=== PATIENT | female | born 1955 | race Caucasian/White ===

== ENCOUNTER → 2018-02-09 12:17 | Outpatient (CLI) | payer MEDICARE, OTHER, SELFPAY ==
--- NOTE | 2018-02-09 12:32 | US_ITS ---
STUDY: ABDOMINAL ULTRASOUND - RIGHT UPPER QUADRANT REASON FOR VISIT: Female, 63 years old. RUQ pain. TECHNIQUE: Ultrasound evaluation of the right upper quadrant was performed with real-time and static sue-scale imaging. TECHNICAL QUALITY: Adequate. COMPARISON: None. FINDINGS: Liver: The liver measures 19.4 cm. There is normal echogenicity of the liver. The bile ducts are within normal limits. There is hepatic color flow. The direction of portal flow is hepatopetal. There is no demonstrated mass lesion. Gallbladder: Normal distended gallbladder. The gallbladder wall measures 2.8 mm. There is a negative sonographic Delaney's sign. There is no pericholecystic fluid. There are multiple echogenic structures within the gallbladder, consistent with multiple gallstones. Common Bile Duct (C.B.D.): The common bile duct measures 5.6 mm. Pancreas: Normal size of the head, body of the pancreas. There is normal echogenicity of the pancreas. There is no demonstrated pancreatic mass or cyst. Right Kidney: Normal size of the right kidney. The right kidney measures 10.1 cm. Normal renal cortex. The right cortex measures cm. There is no demonstrated renal mass or cyst. There is no right hydronephrosis. US/Abdomen Limited IMPRESSION: Cholelithiasis. Electronically Signed: Marcellus Nunn MD at 13:17 EDT Tel , Service support ,
[2018-02-09 13:24] LABS: Absolute Lymphocyte Count 1.21 X10^3/ul (0.83-4.51); Absolute Neutrophil Count 8.1 X10^3/uL (2.0-7.7); Basophil# 0.01 X10^3/uL; Basophil% 0.1 % (0-1); Eosinophil# 0.07 X10^3/uL; Eosinophils% 0.7 % (0-5); Hematocrit 35.3 % (37-47); Hemoglobin 11.9 g/dl (12.0-15.0); Lymphocyte # 1.21 X10^3/ul (4.0); Lymphocyte % 11.8 % (19-41); Mean Corp Hgb Conc 33.7 g/gl (32-36); Mean Corpuscular Hgb 31.3 pg (27.0-32.0); Mean Corpuscular Volume 92.9 fL (81-99); Mean Platelet Vol. 9.9 fl (6.2-12.0); Monocyte# 0.87 X10^3/uL; Monocyte% 8.5 % (0-10); Neutrophil # 8.05 X10^3/uL (2.7-7.7); Neutrophil % 78.7 % (47-70); POSITIVE COUNT NO; POSITIVE DIFFERENTIAL NO; POSITIVE MORPHOLOGY NO; Platelet Count 185 K/mm3 (150-450); RBC Distribution Width CV 14.5 % (11.6-14.6); RBC Distribution Width SD 49.7 fl (35.1-43.9); White Blood Count 10.2 K/mm3 (4.4-11.0)
[2018-02-09 13:55] LABS: ALB/GLOB Ratio 0.7 RATIO (0.9-2.4); AST(SGOT) 38 U/L (15-37); Alanine Aminotransfer ALT/SGPT 192 U/L (13-56); Albumin, Serum 2.8 g/dL (3.2-5.0); Alkaline Phosphatase 85 U/L (45-117); Anion Gap 6 (5-15); BUN 21 mg/dL (7-18); Calcium,Total 8.1 mg/dL (8.5-10.1); Chloride 93 mmol/L (98-107); Creatinine, Serum 0.95 mg/dL (0.55-1.02); EST Glomerular Filtration Rate 62 mL/min (>60); Est Glom Filt Rate - Afr Amer 76 mL/min (>60); Globulin 4.1 g/dL (2.2-4.2); Glucose 104 mg/dL (74-106); Lipase 589 U/L (73-393); Potassium 2.7 mmol/L (3.5-5.1); Protein, Total 6.9 g/dL (6.4-8.2); Sodium Level 132 mmol/L (136-145)
[2018-02-09 21:04] LABS: Xtra Tube EP Lab EXTRA TUBE
[2018-02-10 11:40] LABS: Hep C Antibodies <0.1 s/co ratio (0.0-0.9); Hepatitis A AB, Total Negative (Negative)
== END ==
PROVIDERS: Family Provider Family Medicine; PCP Family Medicine; Visit Provider Family Medicine
DX: K80.20 Calculus of gallbladder without cholecystitis without obstruction (principal)
CPT/HCPCS: 36415; 76705; 80053; 83690; 85025; 86140; 86708; 86803

== ENCOUNTER 2018-02-09 14:22 | Inpatient (IN) | payer MEDICARE, OTHER, SELFPAY ==
[2018-02-09 14:23] VITALS: BP 109/56; PULSE 95; RESP 14; TEMP 36.2; O2SAT 98; BMI 30.5
--- NOTE | 2018-02-09 14:49 | ED.DCSUM_ITS ---
- ER Visit Summary Date of Service: 02/09/18 Chief Complaint: [] Abdominal pain, weight loss. History of Present Illness: The patient is a 63 F [] complaining of 12 pound weight loss in the last 4 days secondary to pain, and nausea and vomiting. Patient was seen today as an outpatient and underwent right upper quadrant ultrasound and outpatient laboratory testing. Labs reveal an elevated lipase at 589 consistent with pancreatitis. CBC normal, BMP normal with exception of a sodium of 132 potassium 2.7, respectively. CRP significantly elevated at 297. Right upper quadrant ultrasound reveals cholelithiasis with a gallbladder wall thickness of 2.8 mm. Physical Examination: [] Afebrile, vital signs stable. 63-year-old female no acute distress. Cardiovascular exam is regular rate and rhythm. Lungs clear to auscultation. Abdomen is soft with right upper quadrant tenderness on exam. No guarding or rebound noted. 1+ symmetric lower extremity edema. Remainder of exam is unremarkable. Test Results: [] All test results from earlier today are reviewed. Emergency Department Course and Treatment: [] Patient given intravenous fluids and morphine and Phenergan for symptom relief. Case discussed with hospitalist for admission and further treatment and evaluation. Treatment Plan: [] NPO. IV fluids. Case discussed with the patient's requested surgeon, Dr. Harrell. He will be in to the emergency department to evaluate the patient at the completion of his outpatient complement of patients. Disposition: [] Admit, stable. Impression: [] Gallstone pancreatitis Hypokalemia Hyponatremia Functional decline This note was generated with [employer] dictation software. It may contain incorrect words, spelling, and punctuation that were not noted in review of the chart prior to signing ED Disposition - Plan for ED Patient: Chief Complaint: Abd Pain Referrals: Marvel Shaikh MD [Primary Care Provider] -
--- NOTE | 2018-02-09 14:49 | EKG12_ITS ---
Test Reason : ABDOMINAL PAIN Blood Pressure : / mmHG Vent. Rate : 086 BPM Atrial Rate : 086 BPM P-R Int : 142 ms QRS Dur : 086 ms QT Int : 360 ms P-R-T Axes : 050 013 018 degrees QTc Int : 430 ms Normal sinus rhythm Nonspecific ST abnormality Abnormal ECG Confirmed by JOSE LUIS COLON, ISSAC ([id number]), legal editor ZACK VLAVERDE ([id number] on 02/15/2018 1:39:51 PM Referred By: Marvel Shaikh Confirmed By:ISSAC AMAYA MD
[2018-02-09] MEDS: Morphine 2 MG/ML Syringe IV (15:11)
[2018-02-09] MEDS: proMETHazine 25 MG/ML Syringe 6.25 MG IV (15:12)
[2018-02-09 15:48] VITALS: BMI 30.6
--- NOTE | 2018-02-09 16:20 | PCM.HP.STD ---
Problem List (1) Cholelithiasis Status: Acute (2) RUQ abdominal pain Status: Acute History of Present Illness Date of Admission: 02/09/18 Chief Complaint: Right upper quadrant pain. Nausea, vomiting. The patient is a 63 year old F who presents with 4 day history of nausea, vomiting and RUQ abdominal pain. Patient notes on Tuesday she started to vomit. She did not have much of an appetite. She attempted to eat some toast. She continued with nausea, vomiting symptoms. Patient stated she thought she had the flu. She noted also being weak and tired. Patient's daughter made an appointment with her PCP, Dr. Shaikh for today. She was evaluated in the office and was referred to the [facility] for lab work and RUQ u/s. Lab work demonstrated WBC 10.2, Hgb 11.9, Hct 35.3, and plt 185. Potassium was 2.7, BUN 21, Total bilirubin 1.20, AST 38, ALT 192, CRP 297, and lipase of 589. RUQ u/s demonstrated multiple gallstones, no pericholecystic fluid, negative sonographic Delaney's sign. Normal pancreas. Patient was instructed by Dr. Shaikh to present to the ED for admission. Patient denies having similar symptoms previously. She was unaware she had gallstones. She denies bowel habit changes. She denies previous myocardial infarction, stroke, blood clots. She denies having to be evaluated by a product consultant previously. She denies being on blood thinners. Patient notes previous abdominal surgeries as tubal ligation and 1 . She denies history of smoking. She occasionally drinks a glass a wine. Past Medical History Allergies Penicillins [PCN] Allergy (Verified 02/09/18 14:26) Hives acetaminophen [From Tylenol] Adverse Reaction (Verified 02/09/18 14:26) Rash aspirin [ASA] Adverse Reaction (Verified 02/09/18 14:26) Rash egg Adverse Reaction (Verified 02/09/18 15:54) Food Allergy Pt states she cannot have straight eggs, but mixed with things it is not a problem. Sulfa (Sulfonamide Antibiotics) Adverse Reaction (Verified 02/09/18 14:26) Vomiting Home Medications: Ambulatory Orders Medication Instructions Recorded Amlodipine [Norvasc] 5 mg PO DAILY 02/09/18 Benazepril HCl [Lotensin] 20 mg PO QHS 02/09/18 Cholecalciferol (Vitamin D3) 5,000 unit PO QHS 02/09/18 [Vitamin D3] Diphenhydramine HCl [Benadryl 25 mg PO BID PRN 02/09/18 Allergy] Indapamide [Indapamide] 1.25 mg PO DAILY 02/09/18 Naproxen [Naproxen] 500 mg PO BID PRN 02/09/18 Simvastatin [Zocor] 20 mg PO QHS 02/09/18 Surgical History: - - Tubal ligation and 1 Psychiatric History: No pertinent psych hx 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 Denies: Chills, Fever HEENT: Denies: Head Aches, Sinus Congestion, Sinus Drainage Cardiovascular: Denies: Chest Pain, Palpitations Respiratory: Denies: Cough, Shortness of breath at rest, Sputum production Gastrointestinal: Reports: Abdominal Pain, Nausea, Vomiting Genitourinary: Denies: Dysuria Musculoskeletal: Reports: Back Pain. Denies: Joint Pain, Joint Tenderness Skin: Denies: Rash, Wounds Neurological: Denies: Numbness, Tingling, Focal weakness Psychiatric: Denies: Anxiety, Depression, Homicidal Ideations, Suicidal Ideations Hematologic/ Lymphatic: Denies: Easy Bruising, Easy Bleeding, Hx of blood clot VTE Information - Inpt Only VTE Present on Admission: Yes VTE Mechan Device Prophylaxis: SCD's Patient Problems: Active and Suspected Problems Abdominal pain (Acute) Cholelithiasis (Acute) RUQ abdominal pain (Acute) - Physical Exam General: Alert, Oriented x3, Cooperative HEENT: Atraumatic, PERRLA, EOMI, Normocephalic Neck: Supple, No JVD, Negative Carotid Bruits Lungs: Clear to auscultation, Normal air movement Cardiovascular: Regular rate, No murmurs Abdomen: Soft, Hypoactive Bowel Sounds, Distended, Tender - RUQ. Positive Delaney's sign Extremities: No edema, Capillary Refill Less than 3 Seconds Skin: No rashes, No breakdown Musculoskeletal: No Tenderness to Palpation of Joints or Extremities Neurological: Neuro grossly intact Psych/Mental Status: Normal Affect, Appropriate Vital Signs Temp Pulse Resp BP Pulse Ox 97.2 F L 95 14 109/56 L 98 02/09/18 14:23 02/09/18 14:23 02/09/18 14:23 02/09/18 14:23 02/09/18 14:23 Oxygen Delivery Method Room Air Weight: 178 lb 2.136 oz Body Mass Index (BMI) 30.5 Assessment/Plan Active and Suspected Problems Abdominal pain (Acute) Cholelithiasis (Acute) RUQ abdominal pain (Acute) I have been asked to evaluate this patient in conjunction with Dr. Arredondo. Impression: Nausea, vomiting, RUQ abdominal pain. Cholelithiasis. Hypokalemia Plan: I have discussed this patient in conjunction with Dr. Arredondo. Dr. Arredondo will plan to perform a laparoscopic cholecystectomy with intraoperative cholangiogram tomorrow. Dr. Arredondo will review the procedure with the patient. We will admit the patient to the med/surg floor. We will replace patient's potassium and recheck lab work in the morning. Patient and her daughter have had the opportunity to ask questions up to this point. Dr. Arredondo will review additional questions with the patient. Thank you for allowing us the opportunity to participate in this patient's care. My recommendations will be available via electronic medical records.
[2018-02-09 16:21] VITALS: BP 130/78; PULSE 80; RESP 14; O2SAT 98
[2018-02-09 16:28] VITALS: BP 124/70; PULSE 85; RESP 14; O2SAT 99
--- NOTE | 2018-02-09 16:32 | HP.PCM_ITS ---
Problem List (1) Cholelithiasis Status: Acute (2) RUQ abdominal pain Status: Acute History of Present Illness Date of Admission: 02/09/18 Chief Complaint: Right upper quadrant pain. Nausea, vomiting. The patient is a 63 year old F who presents with 4 day history of nausea, vomiting and RUQ abdominal pain. Patient notes on Tuesday she started to vomit. She did not have much of an appetite. She attempted to eat some toast. She continued with nausea, vomiting symptoms. Patient stated she thought she had the flu. She noted also being weak and tired. Patient's daughter made an appointment with her PCP, Dr. Shaikh for today. She was evaluated in the office and was referred to the [facility] for lab work and RUQ u/s. Lab work demonstrated WBC 10.2, Hgb 11.9, Hct 35.3, and plt 185. Potassium was 2.7, BUN 21, Total bilirubin 1.20, AST 38, ALT 192, CRP 297, and lipase of 589. RUQ u/s demonstrated multiple gallstones, no pericholecystic fluid, negative sonographic Delaney's sign. Normal pancreas. Patient was instructed by Dr. Shaikh to present to the ED for admission. Patient denies having similar symptoms previously. She was unaware she had gallstones. She denies bowel habit changes. She denies previous myocardial infarction, stroke, blood clots. She denies having to be evaluated by a cv tech previously. She denies being on blood thinners. Patient notes previous abdominal surgeries as tubal ligation and 1 c- section. She denies history of smoking. She occasionally drinks a glass a wine. Past Medical History Allergies Penicillins [PCN] Allergy (Verified 02/09/18 14:26) Hives acetaminophen [From Tylenol] Adverse Reaction (Verified 02/09/18 14:26) Rash aspirin [ASA] Adverse Reaction (Verified 02/09/18 14:26) Rash egg Adverse Reaction (Verified 02/09/18 15:54) Food Allergy Pt states she cannot have straight eggs, but mixed with things it is not a problem. Sulfa (Sulfonamide Antibiotics) Adverse Reaction (Verified 02/09/18 14:26) Vomiting Home Medications: Ambulatory Orders Medication Instructions Recorded Amlodipine [Norvasc] 5 mg PO DAILY 02/09/18 Benazepril HCl [Lotensin] 20 mg PO QHS 02/09/18 Cholecalciferol (Vitamin D3) 5,000 unit PO QHS 02/09/18 [Vitamin D3] Diphenhydramine HCl [Benadryl 25 mg PO BID PRN 02/09/18 Allergy] Indapamide [Indapamide] 1.25 mg PO DAILY 02/09/18 Naproxen [Naproxen] 500 mg PO BID PRN 02/09/18 Simvastatin [Zocor] 20 mg PO QHS 02/09/18 Surgical History: - - Tubal ligation and 1 Psychiatric History: No pertinent psych hx COUNTRY DIRECTOR History: No pertinent COUNTRY DIRECTOR history Lives: Alone Smoking Status: Never smoker Alcohol: None Drugs: None - *Family History Maternal History Items: No pertinent history Paternal History Items: No pertinent history Review of Systems Constitutional: Reports: Anorexia, Malaise, Weakness, Fatigue. Denies: Chills, Fever HEENT: Denies: Head Aches, Sinus Congestion, Sinus Drainage Cardiovascular: Denies: Chest Pain, Palpitations Respiratory: Denies: Cough, Shortness of breath at rest, Sputum production Gastrointestinal: Reports: Abdominal Pain, Nausea, Vomiting Genitourinary: Denies: Dysuria Musculoskeletal: Reports: Back Pain. Denies: Joint Pain, Joint Tenderness Skin: Denies: Rash, Wounds Neurological: Denies: Numbness, Tingling, Focal weakness Psychiatric: Denies: Anxiety, Depression, Homicidal Ideations, Suicidal Ideations Hematologic/ Lymphatic: Denies: Easy Bruising, Easy Bleeding, Hx of blood clot VTE Information - Inpt Only VTE Present on Admission: Yes VTE Mechan Device Prophylaxis: SCD's Patient Problems: Active and Suspected Problems Abdominal pain (Acute) Cholelithiasis (Acute) RUQ abdominal pain (Acute) - Physical Exam General: Alert, Oriented x3, Cooperative HEENT: Atraumatic, PERRLA, EOMI, Normocephalic Neck: Supple, No JVD, Negative Carotid Bruits Lungs: Clear to auscultation, Normal air movement Cardiovascular: Regular rate, No murmurs Abdomen: Soft, Hypoactive Bowel Sounds, Distended, Tender - RUQ. Positive Delaney 's sign Extremities: No edema, Capillary Refill Less than 3 Seconds Skin: No rashes, No breakdown Musculoskeletal: No Tenderness to Palpation of Joints or Extremities Neurological: Neuro grossly intact Psych/Mental Status: Normal Affect, Appropriate Vital Signs Temp Pulse Resp BP Pulse Ox 97.2 F L 95 14 109/56 L 98 02/09/18 14:23 02/09/18 14:23 02/09/18 14:23 02/09/18 14:23 02/09/18 14:23 Oxygen Delivery Method Room Air Weight: 178 lb 2.136 oz Body Mass Index (BMI) 30.5 Assessment/Plan Active and Suspected Problems Abdominal pain (Acute) Cholelithiasis (Acute) RUQ abdominal pain (Acute) I have been asked to evaluate this patient in conjunction with Dr. Arredondo. Impression: Nausea, vomiting, RUQ abdominal pain. Cholelithiasis. Hypokalemia Plan: I have discussed this patient in conjunction with Dr. Arredondo. Dr. Arredondo will plan to perform a laparoscopic cholecystectomy with intraoperative cholangiogram tomorrow. Dr. Arredondo will review the procedure with the patient. We will admit the patient to the med/surg floor. We will replace patient's potassium and recheck lab work in the morning. Patient and her daughter have had the opportunity to ask questions up to this point. Dr. Arredondo will review additional questions with the patient. Thank you for allowing us the opportunity to participate in this patient's care. My recommendations will be available via electronic medical records.
[2018-02-09 17:35] VITALS: BMI 30.9
[2018-02-09] MEDS: 0.9% Normal Saline 1,000 ML 999 ML IV (17:43)
[2018-02-09] MEDS: Lactated Ringers 1,000 ML 100 ML IV (19:05)
[2018-02-09 19:11] VITALS: BMI 30.9
[2018-02-09 21:15] VITALS: BP 116/47; PULSE 78; RESP 18; TEMP 37.2; O2SAT 96
[2018-02-10] VITALS (14 sets, daily range): BP systolic 106–128; BP diastolic 46–64; PULSE 66–91; RESP 14–18; TEMP 36.2–37.9; O2SAT 93–100; BMI 30.9; BMI 30.6
--- NOTE | 2018-02-10 05:34 | PCM.PN.SRG ---
Patient Problems: Active and Suspected Problems Abdominal pain (Acute) Cholelithiasis (Acute) RUQ abdominal pain (Acute) Subjective: Pt did not sleep well secondary to noise States she feels better with IVF No stool - Physical Exam Abdomen: - - soft, firm ruq with mild tenderness Vital Signs Temp Pulse Resp BP Pulse Ox 100.2 F H 91 18 114/46 L 94 02/10/18 03:15 02/10/18 03:15 02/10/18 03:15 02/10/18 03:15 02/10/18 03:15 Oxygen Delivery Method Room Air Weight: 180 lb 15.992 oz Body Mass Index (BMI) 30.9 Intake and Output for Last 24 Hours 02/08/18 02/09/18 02/10/18 23:59 23:59 23:59 Intake Total 2350 / 2350 Output Total 1175 / 1175 Balance 1175 / 1175 Medical Necessity - Tobacco Use Smoking Status: Never smoker Assessment/Plan Active and Suspected Problems Abdominal pain (Acute) Cholelithiasis (Acute) RUQ abdominal pain (Acute) Low grade fever noted Pt needs to mobilize and stressed IS Labs pending Plan lap GB today
[2018-02-10 06:12] LABS: ALB/GLOB Ratio 0.6 RATIO (0.9-2.4); AST(SGOT) 33 U/L (15-37); Alanine Aminotransfer ALT/SGPT 127 U/L (13-56); Albumin, Serum 2.3 g/dL (3.2-5.0); Alkaline Phosphatase 65 U/L (45-117); Anion Gap 6 (5-15); BUN 13 mg/dL (7-18); BUN/Creat Ratio 19.8 RATIO (10-20); Calcium,Total 7.6 mg/dL (8.5-10.1); Chloride 102 mmol/L (98-107); Creatinine, Serum 0.66 mg/dL (0.55-1.02); EST Glomerular Filtration Rate 96 mL/min (>60); Est Glom Filt Rate - Afr Amer 116 mL/min (>60); Estimated Creatinine Clearance 73.38 ml/min; Globulin 3.8 g/dL (2.2-4.2); Glucose 100 mg/dL (74-106); Lipase 304 U/L (73-393); Potassium 3.4 mmol/L (3.5-5.1); Protein, Total 6.1 g/dL (6.4-8.2); Sodium Level 137 mmol/L (136-145)
[2018-02-10] MEDS: Clindamycin 900 MG/50 ML BAG 75 MG IV ×3 (06:13→22:49)
[2018-02-10] MEDS: Lactated Ringers 1,000 ML 100 ML IV (06:14)
[2018-02-10 06:16] LABS: Basophil# 0.02 X10^3/uL; Basophil% 0.2 % (0-1); Eosinophil# 0.07 X10^3/uL; Eosinophils% 0.7 % (0-5); Hematocrit 33.2 % (37-47); Hemoglobin 10.9 g/dl (12.0-15.0); Lymphocyte % 9.8 % (19-41); Mean Corp Hgb Conc 32.8 g/gl (32-36); Mean Corpuscular Hgb 31.2 pg (27.0-32.0); Mean Corpuscular Volume 95.1 fL (81-99); Mean Platelet Vol. 10.3 fl (6.2-12.0); Monocyte# 1.06 X10^3/uL; Monocyte% 10.4 % (0-10); Neutrophil # 7.98 X10^3/uL (2.7-7.7); Neutrophil % 78.5 % (47-70); Platelet Count 196 K/mm3 (150-450); RBC Distribution Width CV 14.6 % (11.6-14.6); RBC Distribution Width SD 48.7 fl (35.1-43.9); Red Blood Count 3.49 M/mm3 (4.2-5.4); White Blood Count 10.2 K/mm3 (4.4-11.0)
[2018-02-10 06:20] LABS: Differential Indicated SCAN CRITERIA MET; POSITIVE COUNT NO; POSITIVE DIFFERENTIAL NO; POSITIVE MORPHOLOGY YES
[2018-02-10] MEDS: Bupivacaine Mpf 0.5% 30 ML VIAL (10:55)
--- NOTE | 2018-02-10 11:15 | GALL_PTH ---
PATIENT: OLIVERIO DALY LOC: [facility] U#:[id number] AGE/SX: 63/F ROOM: [facility]319 RE02/10/[address]: Dr. Cliff Arredondo MD : [id number] BED: 1 DIS: 02/12/2018 SPEC #: [id number] RECD: 02/11/18 11:41 STATUS: CHIOMA GARVINJesus #: [id number] DOMENIC: 02/10/18 11:[address]: Cliff Arredondo DEPT: SURGICAL PATHOLOGY RECD BY: Jose Luis Becker ENTERED: 02/14/18 11:22 SP TYPE: HERB WATTS DR: Dr. Marvel Shaikh MD Tissues: A - Gallbladder, NOS B - HERNIA Procedures: Surgery Specimen Level II Surgery Specimen Level III HEADER OPERATION: Laparoscopic cholecystectomy with IOC PRE-OP DIAGNOSIS: Cholelithiasis TISSUE SUBMITTED: A ? Gallbladder, B ? Hernia sac and contents MICROSCOPIC DIAGNOSIS A. Gallbladder: Acute and chronic cholecystitis with focal ulceration and cholelithiasis. B. Hernia sac and contents: A piece of mature adipose tissue, clinically hernia sac and contents. ELIEL:werner 02/15/18 MICROSCOPIC DESCRIPTION Slides are reviewed. GROSS DESCRIPTION A - Received is one container labeled with the patient's name and designated gallbladder. The specimen consists of a gallbladder measuring 10 cm in length and 4.5 cm in diameter. The external surface is pink-terrazas, smooth and glistening for the most part. Focally it is granular, hemorrhagic and contains cautery artifact. The gallbladder contains green-yellow mucoid bile and multiple brownish-black stones measuring in aggregate 3 x 2 x 0.5 cm and 0.3 to 0.8 cm in greatest dimension. The mucosa is bile-stained and without any mass lesions. The gallbladder wall measures up to 0.3 cm in thickness. Strand Forming Machine Operator sections from the gallbladder and the cystic duct are submitted in one cassette. B - Received in fixative is one container labeled with the patient's name and designated hernia sac and contents. The specimen consists of a piece of yellow adipose tissue measuring 3 x 2.6 x 1 cm. Sections do not reveal any mass lesion. Strand Forming Machine Operator sections are submitted in one cassette. / ELIEL:werner 02/14/18 TC:2 CPT: 35626, 37923
--- NOTE | 2018-02-10 11:15 | RAD_ITS ---
STUDY: INTRAOPERATIVE CHOLANGIOGRAM. REASON FOR EXAM: Female, 63 years old. Laparoscopic cholecystectomy. FLUOROSCOPY TIME (if supplied): (15.8 seconds) minutes/seconds TECHNIQUE: Intraoperative cholangiogram was performed by the surgeon. Imaging was submitted. COMPARISON: None. FINDINGS: The common bile duct is not dilated. No intraluminal filling defect is seen. There is free flow of contrast into the duodenum. RAD/Cholangiogram/ O R,Initial IMPRESSION: Unremarkable intraoperative cholangiogram. Electronically Signed: Demarcus Julio MD at 12:45 EDT Tel [phone], Service support ,
--- NOTE | 2018-02-10 11:34 | PCM.DC.GS ---
Discharge Diet: Light diet - advance as tolerated - if you have questions about your diet instructions, please talk to you doctor. Discharge Activity: May Not Drive - for 1 week or while taking narcotic pain medicine. May shower in (days): 1 Lifting Restrictions: 10 pounds Call your doctor if your incision/area has: Continuous Slow Oozing, Sudden Increased Bleeding, Increased Pain/ Swelling, Increased Redness, Foul Smelling Discharge Call your doctor if you observe: Fever of 101 or Higher Suture Line Care: Avoid Pulling/Pushing, Avoid Pinching/Bending Additional Dressing/Incision Instructions:: Change or remove dressing in 4 days. Leave steri-strips in place for 1 week. Allergies/Adverse Reactions: Allergies Penicillins [PCN] Allergy (Verified 02/09/18 14:26) Hives acetaminophen [From Tylenol] Adverse Reaction (Verified 02/09/18 14:26) Rash aspirin [ASA] Adverse Reaction (Verified 02/09/18 14:26) Rash egg Adverse Reaction (Verified 02/09/18 15:54) Food Allergy Pt states she cannot have straight eggs, but mixed with things it is not a problem. Sulfa (Sulfonamide Antibiotics) Adverse Reaction (Verified 02/09/18 14:26) Vomiting Medications to take at Discharge Amlodipine [Norvasc] 5 mg PO DAILY 02/09/18 Benazepril HCl [Lotensin] 20 mg PO QHS 02/09/18 Cholecalciferol (Vitamin D3) [Vitamin D3] 5,000 unit PO QHS 02/09/18 Diphenhydramine HCl [Benadryl Allergy] 25 mg PO BID PRN 02/09/18 Indapamide 1.25 mg PO DAILY 02/09/18 Naproxen 500 mg PO BID PRN 02/09/18 Simvastatin [Zocor] 20 mg PO QHS 02/09/18 Oxycodone [Oxyir] 5 mg PO Q4H PRN PRN 3 Days #10 tablet 02/10/18 The following prescriptions were given: Oxycodone [Oxyir] 5 mg PO Q4H PRN PRN 3 Days #10 tablet PRN Reason: Pain Primary Care Physician: aMrvel Shaikh MD [Primary Care Provider] - Please Follow Up With: Cliff Arredondo MD - [phone] When: Call to make an appointment to be seen in about 10 days.
--- NOTE | 2018-02-10 12:13 | NURSING ---
REPORT CALLED TO JUHI WEBSTER ON [facility]
--- NOTE | 2018-02-10 13:27 | PCM.OPRPT ---
Problem List (1) Gallstone pancreatitis Status: Acute (2) Umbilical hernia Status: Acute Qualifiers: Obstruction and gangrene presence: without obstruction or gangrene Qualified Code(s): K42.9 - Umbilical hernia without obstruction or gangrene Report of Operation Date of Procedure: 02/10/18 Pre-Operative Diagnosis: Chronic cholecystitis cholelithiasis gallstone pancreatitis Post-Operative Diagnosis: Cholecystitis cholelithiasis gallstone pancreatitis umbilical hernia with incarcerated preperitoneal fat Surgery/Procedure Performed:: Scopic cholecystectomy with cholangiography. Umbilical herniorrhaphy Description of Surgical Findings:: Informed consent was obtained.-year-old female was taken from placement table underwent general ventricular-based anesthesia was sterilely prepped draped clindamycin had been started preoperatively due to elevated fever. A vertical incision was made at the umbilicus and incarcerated umbilical hernia was encountered this was circumferentially dissected free. A having completely released that a varies needle was inserted the abdomen was insufflated CO2 to a pressure of tenderness or pressure a blunt tunneling trocar was handed to me I did not feel comfortable with that so I then used a 5 mm trocar in the epigastric area under Visiport visualization gain access to the abdomen looked back down at the ports at the umbilical site and realized that the site of the Veress needle insertion there was colonic adherence. However the abdomen had been insufflated with air was unclear as to whether there had been any untoward event. I placed 2 more 5 mm trochars in the epigastric and right subcostal area adhesions of omentum to the anterior abdominal wall were sharply lysed was no evidence of any succus no leak. That area was simply marked for later. I placed a 12 mm trocar at the umbilicus the omentum had the gallbladder completely sealed off there was saponification of fat tedious sharp and blunt dissection was required to elevate the thick-walled gallbladder tediously the infundibular area was awkward dissected free and bluntly dissected free until the cystic artery and cystic duct were identified the cystic duct was milked back a Hem-o-norman clip was placed on that incision in the infundibular cystic duct. Cholangiogram inserted through a 14-gauge Angiocath and fluoroscopically controlled claims grams obtained demonstrating normal ductal anatomy and free flow and small bowel no evidence of any intraluminal filling defect. The client Nicola catheter was removed to extra-large Hem-o-norman clips were placed on the infundibular area prior to transecting it. The cystic artery was clipped twice proximally prior to transecting it the gallbladder was dissected free from the liver bed using electrocautery complete hemostasis was intact. Bile other than when the duct ductotomy was created a small amount of sludge was then quickly aspirated free. The gallbladder was then immediately placed in the retrieval bag. There was no spillage of stone or the gallbladder was exited the umbilicus. The umbilical incision was lengthened vertically the portion of colon now was inspected there appear to be a very small serosal tear there was no evidence of any succus no stool. This point however I thought that it would be stanley to simply imbricate the area and I did that with interrupted 4-0 Vicryl but upon so doing I then noticed at one of the needle hole sites from the 4-0 Vicryl a small amount of stool so this was due to the thinness of the bowel I simply then provided a couple more imbricating sutures of interrupted 4-0 Vicryl to completely imbricate the area I then placed a patch of omentum over top and secured that with a 4-0 Vicryl as well. I felt that it was likely small defect caused by the suturing needle due to the thinness of the bowel and that location which represented I believe transverse colon. That was rapidly identified and treated. I did not have clear evidence of either trocar or Veress needle involvement. However I felt that the tissue was then and required Reinforcement. The umbilical hernia now was closed with multiple interrupted [id number] sutures of 0 Nurolon. Skin edges proximate of 4-0 Monocryl. It is of note that prior to completing laparoscopic ports procedure I trimmed a 15 round MAXINE drain to length placed at the subhepatic space exited through the right lateral port site and secured to skin with interrupted 3-0 nylon. That was clipped applied now to close bulb suction. Sponge instrument and needle counts were reported to the surgeon for correct blood loss was minimal she tolerated well was taken to the recovery or insect condition. Specimens include the incarcerated umbilical hernia and contents. The gallbladder. Blood loss minimal. Drains include a 15 round MAXINE the subhepatic space. Cliff Arredondo M.D., F.A.C.S. Type of Anesthesia:: General
[2018-02-10] MEDS: Ondansetron 4 MG/2 ML Vial IV (15:10)
--- NOTE | 2018-02-10 20:43 | PCM.PN.BLA ---
Progress Note Pt c/o soreness, no flatus She has not been OOB to chair or ambulating MAXINE serosanguinous Abdomen distended, diffusely tender, occ BS Need to mobilize pt Will moderate IVF Rashad
[2018-02-10] MEDS: Morphine 4 MG/ML Syringe IV (20:47)
[2018-02-10] MEDS: 0.9% NaCl Peripheral Flush Adult/Peds IV (20:48)
[2018-02-10] MEDS: Lisinopril 20 MG Tablet PO (22:50)
[2018-02-10] MEDS: Atorvastatin Calcium 10 MG Tablet PO (22:50)
[2018-02-11] MEDS: Lactated Ringers 1,000 ML 70 ML IV (01:00)
[2018-02-11 02:00] VITALS: BP 117/50; PULSE 89; RESP 18; TEMP 37.6; O2SAT 93; BMI 30.6
[2018-02-11] MEDS: Morphine 4 MG/ML Syringe IV ×3 (03:34→19:38)
[2018-02-11] MEDS: 0.9% NaCl Peripheral Flush Adult/Peds IV ×2 (03:35→14:05)
[2018-02-11] MEDS: Clindamycin 900 MG/50 ML BAG 75 MG IV ×3 (06:26→23:00)
--- NOTE | 2018-02-11 06:39 | PCM.PN.SRG ---
Patient Problems: Active and Suspected Problems Abdominal pain (Acute) Cholelithiasis (Acute) RUQ abdominal pain (Acute) Gallstone pancreatitis (Acute) Umbilical hernia (Acute) Subjective: Pt has been able to ambulate, minimal flatus, no nausea, better comfort - Physical Exam General: Alert, Oriented x3, Cooperative, No apparent distress Lungs: Clear to auscultation, - - diminished in bases Abdomen: Soft, Bowel Sounds Not Present, Distended, - - sersanguinous drainage around MAXINE Extremities: No Calf Tenderness Vital Signs Temp Pulse Resp BP Pulse Ox 99.7 F H 89 18 117/50 L 93 02/11/18 02:00 02/11/18 02:00 02/11/18 02:00 02/11/18 02:00 02/11/18 02:00 Oxygen Flow Rate (L/min) 2 Oxygen Delivery Method Nasal Cannula Intake and Output for Last 24 Hours 02/09/18 02/10/18 02/11/18 23:59 23:59 23:59 Intake Total 1236 / 1764 1263 / 1263 Output Total 290 / 1040 330 / 330 Balance 946 / 724 933 / 933 Medical Necessity - Tobacco Use Smoking Status: Never smoker Assessment/Plan Active and Suspected Problems Abdominal pain (Acute) Cholelithiasis (Acute) RUQ abdominal pain (Acute) Gallstone pancreatitis (Acute) Umbilical hernia (Acute) Will start clears and moderate IVF Labs have not been drawn yet Initiate Lovenox for DVT in addn. to early ambulation and scds Possible discharge later today
[2018-02-11 07:03] LABS: Absolute Lymphocyte Count 1.34 X10^3/ul (0.83-4.51); Absolute Neutrophil Count 8.7 X10^3/uL (2.0-7.7); Basophil# 0.02 X10^3/uL; Basophil% 0.2 % (0-1); Eosinophil# 0.12 X10^3/uL; Hematocrit 31.5 % (37-47); Hemoglobin 10.5 g/dl (12.0-15.0); Lymphocyte # 1.34 X10^3/ul (4.0); Lymphocyte % 11.6 % (19-41); Mean Corp Hgb Conc 33.3 g/gl (32-36); Mean Corpuscular Hgb 32.1 pg (27.0-32.0); Mean Corpuscular Volume 96.3 fL (81-99); Monocyte# 1.26 X10^3/uL; Monocyte% 10.9 % (0-10); Neutrophil # 8.66 X10^3/uL (2.7-7.7); Neutrophil % 75.1 % (47-70); Platelet Count 220 K/mm3 (150-450); RBC Distribution Width SD 51.1 fl (35.1-43.9); Red Blood Count 3.27 M/mm3 (4.2-5.4); White Blood Count 11.5 K/mm3 (4.4-11.0)
[2018-02-11 07:06] LABS: POSITIVE COUNT NO; POSITIVE DIFFERENTIAL NO; POSITIVE MORPHOLOGY NO
[2018-02-11 07:34] LABS: Anion Gap 7 (5-15); BUN 15 mg/dL (7-18); BUN/Creat Ratio 20.6 RATIO (10-20); Calcium,Total 7.4 mg/dL (8.5-10.1); Chloride 102 mmol/L (98-107); Creatinine, Serum 0.73 mg/dL (0.55-1.02); EST Glomerular Filtration Rate 85 mL/min (>60); Est Glom Filt Rate - Afr Amer 103 mL/min (>60); Estimated Creatinine Clearance 66.35 ml/min; Glucose 81 mg/dL (74-106); Potassium 3.4 mmol/L (3.5-5.1); Sodium Level 136 mmol/L (136-145)
[2018-02-11 08:53] VITALS: BP 120/55; PULSE 92; RESP 18; TEMP 37.6; O2SAT 95
[2018-02-11 08:58] VITALS: PULSE 90
[2018-02-11] MEDS: amLODIPine 5 MG Tablet PO (09:08)
[2018-02-11] MEDS: Indapamide 2.5 MG Tablet 1.25 MG PO (09:16)
--- NOTE | 2018-02-11 13:32 | CM.UR ---
Met face to face with patient around 10:26am. Has 2 daughters at bedside. One daughter states she will spend the night with patient. States someone will stay with her until Tuesday during the day while she works. Explained Tuesday she should be able to be alone as long as she doesn't try to do too much. She should be able to get around the house, should be able to make own sandwich, etc however just has to remember to not lift anything. Reinforced she won't be allowed to drive at least for a week. Instructed cannot drive while taking pain medication. Verb understanding. Gia Lyons RN, CCM.
[2018-02-11 16:05] VITALS: BP 112/77; PULSE 86; PULSE 90; RESP 16; TEMP 38.1; O2SAT 93
--- NOTE | 2018-02-11 16:16 | NURSING ---
Dr Maria Elena conte.
[2018-02-11 19:43] VITALS: BP 121/50; PULSE 96; RESP 18; TEMP 37.7; O2SAT 94
[2018-02-11] MEDS: Lactated Ringers 1,000 ML 30 ML IV (23:00)
[2018-02-11] MEDS: Lisinopril 20 MG Tablet PO (23:03)
[2018-02-11] MEDS: Atorvastatin Calcium 10 MG Tablet PO (23:03)
[2018-02-11 23:06] VITALS: BP 131/76; PULSE 94; RESP 16; TEMP 37.1; O2SAT 94
[2018-02-12] MEDS: Lactated Ringers 1,000 ML 30 ML IV (02:25)
[2018-02-12 02:37] VITALS: BP 130/54; PULSE 92; RESP 16; TEMP 37.1; O2SAT 92
[2018-02-12] MEDS: Clindamycin 900 MG/50 ML BAG 75 MG IV (05:55)
[2018-02-12 07:28] LABS: Absolute Lymphocyte Count 1.57 X10^3/ul (0.83-4.51); Absolute Neutrophil Count 8.8 X10^3/uL (2.0-7.7); Basophil# 0.01 X10^3/uL; Basophil% 0.1 % (0-1); Eosinophil# 0.21 X10^3/uL; Eosinophils% 1.7 % (0-5); Hematocrit 31.5 % (37-47); Hemoglobin 10.3 g/dl (12.0-15.0); Lymphocyte # 1.57 X10^3/ul (4.0); Mean Corp Hgb Conc 32.7 g/gl (32-36); Mean Corpuscular Hgb 30.9 pg (27.0-32.0); Mean Corpuscular Volume 94.6 fL (81-99); Monocyte# 1.33 X10^3/uL; Neutrophil # 8.84 X10^3/uL (2.7-7.7); Platelet Count 261 K/mm3 (150-450); RBC Distribution Width CV 15.2 % (11.6-14.6); RBC Distribution Width SD 52.4 fl (35.1-43.9); Red Blood Count 3.33 M/mm3 (4.2-5.4); White Blood Count 12.1 K/mm3 (4.4-11.0)
[2018-02-12 07:34] LABS: POSITIVE COUNT NO; POSITIVE DIFFERENTIAL NO; POSITIVE MORPHOLOGY NO
[2018-02-12 08:52] VITALS: BP 137/62; PULSE 87; RESP 16; TEMP 37; O2SAT 97
[2018-02-12] MEDS: Indapamide 2.5 MG Tablet 1.25 MG PO (08:56)
[2018-02-12] MEDS: amLODIPine 5 MG Tablet PO (08:56)
--- NOTE | 2018-02-12 09:34 | PCM.PN.SRG ---
Patient Problems: Active and Suspected Problems Abdominal pain (Acute) Cholelithiasis (Acute) RUQ abdominal pain (Acute) Gallstone pancreatitis (Acute) Umbilical hernia (Acute) Subjective: Patient has no complaints. Tolerating liquids. Pain is improved. No fevers. Objective: Dressings are dry. Abdomen is soft. There is no rebound guarding or peritoneal signs. - Physical Exam Vital Signs Temp Pulse Resp BP Pulse Ox 98.6 F 87 16 137/62 H 97 02/12/18 08:52 02/12/18 08:52 02/12/18 08:52 02/12/18 08:52 02/12/18 08:52 Oxygen Flow Rate (L/min) 2 Oxygen Delivery Method Room Air Intake and Output for Last 24 Hours 02/10/18 02/11/18 02/12/18 23:59 23:59 23:59 Intake Total 1236 / 1764 2712 / 2712 1267 / 1267 Output Total 290 / 1040 1330 / 1330 1750 / 1750 Balance 946 / 724 1382 / 1382 -483 / -483 Laboratory Tests Past 24 Hrs 02/12/18 06:20 WBC 12.1 H RBC 3.33 L Hgb 10.3 L Hct 31.5 L MCV 94.6 MCH 30.9 MCHC 32.7 RDW 15.2 H RDW Differential 52.4 H Plt Count 261 MPV 10.0 Immature Gran % (Auto) 1.200 H Neut % (Auto) 73.0 H Lymph % (Auto) 13.0 L [place] % (Auto) 11.0 H Eos % (Auto) 1.7 Baso % (Auto) 0.1 Absolute Neuts (auto) 8.8 H Absolute Lymphs (auto) 1.57 Total Counted Not Reportable Medical Necessity - Tobacco Use Smoking Status: Never smoker Assessment/Plan Active and Suspected Problems Abdominal pain (Acute) Cholelithiasis (Acute) RUQ abdominal pain (Acute) Gallstone pancreatitis (Acute) Umbilical hernia (Acute) At this point the patient is ready for discharge. She does have a slight elevation in her white count but she will be sent home on pain medication as well as ciprofloxacin.
[2018-02-12] MEDS: Ciprofloxacin 400 MG/200 ML BAG 200 MG IV (10:15)
[2018-02-12 11:06] VITALS: BP 113/57; PULSE 87; RESP 18; TEMP 37.3; O2SAT 95
== END 2018-02-12 12:07 | disposition home or self-care (01) | DRG 417 ==
LOC: ED 15:44 → MS2 17:10 → MS3 02-10 11:31
PROVIDERS: Physician Assistant; Admitting Provider Surgery; Emergency Provider Emergency Medicine; Family Provider Family Medicine; PCP Family Medicine; Visit Provider Surgery
PROC: 0WQF0ZZ Repair Abdominal Wall, Open Approach (ICD-10-PCS; CPT 47610; principal; 2018-02-10 10:55)
DX: K80.12 Calculus of gallbladder with acute and chronic cholecystitis without obstruction (principal); K85.10 Biliary acute pancreatitis without necrosis or infection; K42.0 Umbilical hernia with obstruction, without gangrene; G89.29 Other chronic pain; M54.9 Dorsalgia, unspecified; E87.6 Hypokalemia
CPT/HCPCS: 36415; 74300; 76000; 76705; 80048; 80053; 83690; 85025; 86140; 86708; 86803; 88302; 88304; 93005; 97802; 99282; J7030; J7040; J7120; A4216; J0744; J2405

== ENCOUNTER → 2018-03-27 10:27 | Outpatient (CLI) | payer MEDICARE, OTHER, SELFPAY ==
--- NOTE | 2018-03-27 10:30 | RAD_ITS ---
STUDY: X-RAY - CERVICAL SPINE REASON FOR EXAM: Female, 63 years old. Right sided muscle strain. Neck pain. TECHNIQUE: 6 view(s) of the cervical spine were obtained. COMPARISON: None FINDINGS: There is generalized osteopenia. Normal anterior atlantoaxial articulation. Normal odontoid process. Normal cervical lordosis. Normal vertebral bodies and endplates. There is multilevel intervertebral disc space narrowing most marked at C4-5, C5-6 and C6-7. There is anterior bony neural foraminal encroachment at C4-5, C5-6 and C6-7 bilaterally, worse on the right side. There is diffuse uncovertebral and facet sclerosis. The soft tissue structures are unremarkable. RAD/Cerv Spine 4 or 5 Views IMPRESSION: Osteopenia with cervical spondylosis as described. Electronically Signed: Artur Mac MD at 16:56 EDT , Service support ,
== END ==
PROVIDERS: Family Provider Family Medicine; PCP Family Medicine; Visit Provider Family Medicine
DX: S46.811A Strain of other muscles, fascia and tendons at shoulder and upper arm level, right arm, initial encounter (principal); X58.XXXA Exposure to other specified factors, initial encounter; M47.892 Other spondylosis, cervical region; M85.88 Other specified disorders of bone density and structure, other site
CPT/HCPCS: 72050

== ENCOUNTER → 2018-08-17 10:40 | Outpatient (CLI) | payer MEDICARE, OTHER, SELFPAY ==
--- NOTE | 2018-08-17 10:44 | BD_ITS ---
STUDY: DUAL ENERGY X-RAY ABSORPTIOMETRY / DXA REASON FOR EXAM: Female, 63 years old. The patient is postmenopausal. No loss of height. TECHNIQUE: Bone Mineral Density (BMD) measurements of lumbar spine and bilateral hips were obtained. COMPARISON: None. FINDINGS: Lumbar Spine (L1-L4): g/cm2 (1.259) / T-score (0.7) / Z-score (2.2) Findings are suggestive of normal bone density with a low fracture risk. Left Femur Total: g/cm2 (0.932) / T-score (-0.6) / Z-score (0.6) Left Femoral Neck: g/cm2 (0.833) / T-score (-1.5) / Z-score (0.0) Right Femur Total: g/cm2 (1.040) / T-score (0.3) / Z-score (1.5) Right Femoral Neck: g/cm2 (0.921) / T-score (-0.8) / Z-score (0.6) BD/Dexa Bone Density Study IMPRESSION: The patient is considered osteopenic at the level of the left femoral neck as outlined below according to [employer] Organization (WHO) criteria with a low fracture risk. Reference Information: The T-score is the number of standard deviations above or below the standard which is normal for young adults at their peak bone mineral density. The World Health Organization (WHO) interprets the T-scores as follows: Above -1 Normal bone density Between -1 and -2.5 Osteopenia Equal to / or below -2.5 Osteoporosis As a practical clinical guideline, osteopenia may be graded as follows: Mild -1 through -1.5 Moderate -1.6 through -2.0 Severe -2.1 through -2.4 The Z-score is the number of standard deviations above or below age-matched controls. A Z-score of less than -1.5 would be considered abnormal. References: 1. NIH Osteoporosis and Related Bone Diseases http://www.osteo.org 2. International Society for Clinical Densitometry http://www.iscd.org 3. National Osteoporosis Foundation http://www.nof.org Electronically Signed: Demarcus Julio MD at 12:35 EST Tel [phone], Service support ,
--- NOTE | 2018-08-17 10:45 | BI_ITS ---
MAMMOGRAPHY - BILATERAL SCREENING REASON FOR EXAM: Female, 63 years old. Routine annual screening examination. PERTINENT HISTORY: Non-contributory. Remote right stereotactic breast biopsy. TECHNIQUE: Digital bilateral breast merle (3D mammographic acquisition) in the CC and MLO projections. 2-D mediolateral oblique (MLO) and craniocaudad (CC) views of both breasts were obtained. CAD: Full Field Digital Mammography with Computer Added Detection was performed. COMPARISON: Comparison is made with prior study dated June 14, 2016 and August 21, 2014. FINDINGS: Breast Composition: There are scattered areas of fibroglandular density. There are no dominant masses or suspicious calcifications. Once again, a tissue clip marker is seen within a partially calcified 1.2 cm nodule in the deep upper lateral portion of the right breast. This is unchanged. No other significant abnormalities are identified. There has been no significant change since the prior study. BI/SCREENING MAMM (CAD), BILAT IMPRESSION: Stable bilateral screening mammogram. Yearly follow-up mammogram recommended. (A) ASSESSMENT CATEGORY: BIRADS Category 2: Benign. A letter regarding these results will be sent to the patient by the facility within 30 days. Approximately 10% of breast cancers are not detected by mammography. A normal mammogram should not delay biopsy of a clinically suspicious abnormality. [id number] Electronically Signed: Demarcus Julio MD at 12:45 EST Tel [phone], Service support ,
--- OUTSIDE RECORDS SUMMARY | 2018-10-12 12:56 | XMS RPT_ITS ---
:1955 Author Organization OHIP Support Name Relationship Address Phone JEREMI, MOODY Unavailable [address] + [place] [address] UE Unavailable Unavailable Unavailable JEREMI, MOODY Unavailable [address] + [place] [address] UE Unavailable Unavailable Unavailable JEREMI, MOODY Unavailable [address] + [place] [address] UE Unavailable Unavailable Unavailable JEREMI, MOODY Unavailable [address] + [place] [address] UE Unavailable Unavailable Unavailable JEREMI, MOODY Unavailable [address] + [place] [address] UE Unavailable Unavailable Unavailable JEREMI, MOODY Unavailable [address] + [place] [address] UE Unavailable Unavailable Unavailable JEREMI, MOODY Unavailable [address] + [place] [address] UE Unavailable Unavailable Unavailable JEREMI, MOODY Unavailable [address] + [place] [address] UE Unavailable Unavailable Unavailable JEREMI, MOODY Unavailable [address] + [place] [address] UE Unavailable Unavailable Unavailable JEREMI, MOODY Unavailable [address] + [place] [address] UE Unavailable Unavailable Unavailable Care Team Providers Name Role Phone Marvel Shaikh Attending Unavailable Marvel Shaikh Referring Unavailable Marvel Shaikh Primary Care Unavailable Marvel Shaikh Primary Care Unavailable Cliff Arredondo Admitting Unavailable Cliff Arredondo Attending Unavailable Yaquelin Hall PA-C Attending Unavailable Marvel Shaikh Primary Care Unavailable Cliff Arredondo Admitting Unavailable Xander May Attending Unavailable Marvel Shaikh Primary Care Unavailable Cliff Arredondo Consulting Unavailable Isabel CASAS Amanda Attending Unavailable Shaikh, Marvel Referring Unavailable Shaikh, Marvel Primary Care Unavailable Isabel CASAS, Yaquelin Attending Unavailable Neel, Marvel Referring Unavailable Cliff Arredondo Attending Unavailable Cemoisés, Cliff Attending Unavailable Brandin Rob Attending Unavailable Darron, Brandin Referring Unavailable Shaikh, Marvel Primary Care Unavailable Shaikh, Marvel Attending Unavailable Shaikh, Marvel Referring Unavailable Shaikh, Marvel Primary Care Unavailable PROBLEMS PROBLEMS DATE TYPE CONDITION / CODE ATTENDING STATUS SOURCE 08/17/2018 Unknown Z78.0 - Asymptomatic Marvel Shaikh Active [facility] menopausal state / Community Z78.0(ICD-10) Hospital Repository 08/17/2018 Unknown Z12.31 - Encounter Marvel Shaikh Active [place] for screening Community mammogram for Hospital malignant neoplasm Repository of breast / Z12.31(ICD-10) 03/27/2018 Unknown S46.811A - Strain of Darron Active [place] other [facility] [place] [facility] fascia and tendons Hospital at shoulder and Repository upper arm level, right arm, initial encounter / S46.811A(ICD-10) 03/01/2018 Unknown Z98.890 - Other Isabel CASAS, Active [facility] specified [facility] postprocedural Hospital states / Repository Z98.890(ICD-10) 03/01/2018 Unknown Z87.19 - Personal Isabel CASAS, Active [facility] history of other [facility] diseases of the Hospital digestive system / Repository Z87.19(ICD-10) 02/12/2018 Unknown G89.18 - Other acute Cebul, Cliff Active [place] postprocedural pain Community / G89.18(ICD-10) Hospital Repository 03/21/2018 Unknown K85.10 - Biliary Cebul, Cliff Active [facility] acute pancreatitis Community without necrosis or Hospital infection / Repository K85.10(ICD-10) 03/21/2018 Unknown K80.12 - Calculus of Cebul, Cliff Active [facility] gallbladder with Community acute and chronic Hospital cholecystitis Repository without obstruction / K80.12(ICD-10) 03/21/2018 Unknown K42.0 - Umbilical Cebul, Cliff Active [facility] hernia with Community obstruction, without Hospital gangrene / Repository K42.0(ICD-10) 02/09/2018 Unknown R10.11 - Right upper Marvel Shaikh Active [facility] quadrant pain / Community R10.11(ICD-10) Hospital Repository PROCEDURES PROCEDURES No Procedure Records FoundRESULTS RESULTS SCREENING MAMM (CAD), Observed: 08/17/2018 Status: F Source: [facility] BILAT 10:45 AM [facility] REPOSITORY [facility] Imaging Services [address] [place] [address] SCREENING MAMM (CAD), BILAT MR#: [id number] Acct: [id number] Name: OLIVERIO DALY Rep #: [id number] : 1955 F 63 From: Demarcus Julio MD PCP: Marvel Shaikh MD Status: REG CLI Study: SCREENING MAMM (CAD), BILAT Date of Exam: 08/17/18 Exam# [id number] Ordering Dr: Marvel Shaikh MD MAMMOGRAPHY - BILATERAL SCREENING REASON FOR EXAM: Female, 63 years old. Routine annual screening examination. PERTINENT HISTORY: Non-contributory. Remote right stereotactic breast biopsy. TECHNIQUE: Digital bilateral breast merle (3D mammographic acquisition) in the CC and MLO projections. 2-D mediolateral oblique (MLO) and craniocaudad (CC) views of both breasts were obtained. CAD: Full Field Digital Mammography with Computer Added Detection was performed. COMPARISON: Comparison is made with prior study dated June 14, 2016 and August 21, 2014. FINDINGS: Breast Composition: There are scattered areas of fibroglandular density. There are no dominant masses or suspicious calcifications. Once again, a tissue clip marker is seen within a partially calcified 1.2 cm nodule in the deep upper lateral portion of the right breast. This is unchanged. No other significant abnormalities are identified. There has been no significant change since the prior study. BI/SCREENING MAMM (CAD), BILAT IMPRESSION: Stable bilateral screening mammogram. Yearly follow-up mammogram recommended. (A) ASSESSMENT CATEGORY: BIRADS Category 2: Benign. A letter regarding these results will be sent to the patient by the facility within 30 days. Approximately 10% of breast cancers are not detected by mammography. A normal mammogram should not delay biopsy of a clinically suspicious abnormality. [id number] Electronically Signed: Demarcus Julio MD at 12:45 EST Tel [phone], Service support , CC: Marvel Shaikh MD Product Marketing Specialist: Signed DEXA BONE DENSITY Observed: 08/17/2018 Status: F Source: [place] STUDY 10:43 AM [facility] REPOSITORY [facility] Imaging Services [address] [place] [address] Dexa Bone Density Study MR#: [id number] Acct: [id number] Name: OLIVERIO DALY Rep #: [id number] : 1955 F 63 From: Demarcus Julio MD PCP: Marvel Shaikh MD Status: REG CLI Study: Dexa Bone Density Study Date of Exam: 08/17/18 Exam# [id number] Ordering Dr: Marvel Shaikh MD STUDY: DUAL ENERGY X-RAY ABSORPTIOMETRY / DXA REASON FOR EXAM: Female, 63 years old. The patient is postmenopausal. No loss of height. TECHNIQUE: Bone Mineral Density (BMD) measurements of lumbar spine and bilateral hips were obtained. COMPARISON: None. FINDINGS: Lumbar Spine (L1-L4): g/cm2 (1.259) / T-score (0.7) / Z-score (2.2) Findings are suggestive of normal bone density with a low fracture risk. Left Femur Total: g/cm2 (0.932) / T-score (-0.6) / Z- score (0.6) Left Femoral Neck: g/cm2 (0.833) / T-score (-1.5) / Z- score (0.0) Right Femur Total: g/cm2 (1.040) / T-score (0.3) / Z- score (1.5) Right Femoral Neck: g/cm2 (0.921) / T-score (-0.8) / Z-score (0.6) BD/Dexa Bone Density Study IMPRESSION: The patient is considered osteopenic at the level of the left femoral neck as outlined below according to World [place] Organization (WHO) criteria with a low fracture risk. Reference Information: The T-score is the number of standard deviations above or below the standard which is normal for young adults at their peak bone mineral density. The World Health Organization (WHO) interprets the T-scores as follows: Above -1 Normal bone density Between -1 and -2.5 Osteopenia Equal to / or below -2.5 Osteoporosis As a practical clinical guideline, osteopenia may be graded as follows: Mild -1 through -1.5 Moderate -1.6 through -2.0 Severe -2.1 through -2.4 The Z-score is the number of standard deviations above or below age-matched controls. A Z-score of less than -1.5 would be considered abnormal. References: 1. NIH Osteoporosis and Related Bone Diseases http://www.osteo.org 2. International Society for Clinical Densitometry http://www.iscd.org 3. National Osteoporosis Foundation http://www.nof.org Electronically Signed: Demarcus Julio MD at 12:35 EST Tel [phone], Service support , CC: Marvel Shaikh MD Product Marketing Specialist: Signed CERV SPINE 4 OR 5 Observed: 03/27/2018 Status: F Source: MARIEL VIEWS 10:32 AM [facility] REPOSITORY [facility] [place] [address] Cerv Spine 4 or 5 Views MR#: [id number] Acct: [id number] Name: MALIKAOLIVERIO L Rep #: [id number] : 1955 F 63 From: Artur Mac MD PCP: Marvel Shaikh MD Status: REG CLI Study: Cerv Spine 4 or 5 Views Date of Exam: 03/27/18 Exam# [id number] Ordering Dr: Micky Rob MD STUDY: X-RAY - CERVICAL SPINE REASON FOR EXAM: Female, 63 years old. Right sided muscle strain. Neck pain. TECHNIQUE: 6 view(s) of the cervical spine were obtained. COMPARISON: None FINDINGS: There is generalized osteopenia. Normal anterior atlantoaxial articulation. Normal odontoid process. Normal cervical lordosis. Normal vertebral bodies and endplates. There is multilevel intervertebral disc space narrowing most marked at C4-5, C5-6 and C6-7. There is anterior bony neural foraminal encroachment at C4-5, C5-6 and C6-7 bilaterally, worse on the right side. There is diffuse uncovertebral and facet sclerosis. The soft tissue structures are unremarkable. RAD/Cerv Spine 4 or 5 Views IMPRESSION: Osteopenia with cervical spondylosis as described. Electronically Signed: Artur Mac MD at 16:56 EDT , Service support , CC: Brandin Rob MD; Marvel Shaihk MD Product Marketing Specialist: Signed SURGERY VISIT REPORT Observed: 03/01/2018 Status: F Source: [place] 2:43 PM [facility] REPOSITORY [facility] [address] [place] [address]. [address] [place] [address] OFFICE VISIT Date of Service: 03/01/18 MR#: [id number] Acct: [id number] Name: OLIVERIO DALY Rep #: [id number] : 1955 Provider: Yaquelin Hall PA-C Age/Sex: 63/F Location: [facility] Status: Signed Intake Intake Visit Reasons: F/U Post Op Gall Bladder Surgery RC 02/10 Chief Complaint: Gallstone/Pancreatitis Allergies Penicillins [PCN] Allergy (Verified 02/09/18 14:26) Hives acetaminophen [From Tylenol] Adverse Reaction (Verified 02/09/18 14:26) Rash aspirin [ASA] Adverse Reaction (Verified 02/09/18 14:26) Rash egg Adverse Reaction (Verified 02/09/18 15:54) Food Allergy Sulfa (Sulfonamide Antibiotics) Adverse Reaction (Verified 02/09/18 14:26) Vomiting Medications Amlodipine [Norvasc] 5 mg PO DAILY 02/09/18 [History Confirmed 02/09/18] Benazepril HCl [Lotensin] 20 mg PO QHS 02/09/18 [History Confirmed 02/09/18] Cholecalciferol (Vitamin D3) [Vitamin D3] 5,000 unit PO QHS 02/09/18 [History Confirmed 02/09/18] Diphenhydramine HCl [Benadryl Allergy] 25 mg PO BID PRN 02/09/18 [History Confirmed 02/09/18] Indapamide 1.25 mg PO DAILY 02/09/18 [History Confirmed 02/09/18] Naproxen 500 mg PO BID PRN 02/09/18 [History Confirmed 02/09/18] Simvastatin [Zocor] 20 mg PO QHS 02/09/18 [History Confirmed 02/09/18] Oxycodone [Oxyir] 5 mg PO Q4H PRN PRN 3 Days #10 tab 02/10/18 [Rx] Oxycodone [Oxyir] 5 mg PO Q6H PRN PRN 3 Days #8 tab 02/11/18 [Rx] Ciprofloxacin [Cipro] 500 mg PO BID #10 tab 02/12/18 [Rx] PFSH Medical History Abdominal pain (Acute) Cholelithiasis (Acute) RUQ abdominal pain (Acute) Gallstone pancreatitis (Acute) Umbilical hernia (Acute) Surgical History Hx of umbilical hernia repair (Acute) Hx of cholecystectomy (Acute) Social History Smoking Status: Never smoker HPI HPI HPI: OLIVERIO DALY, is a 63 y/o F who presents for a follow- up for lap naeem. Dr. Arredondo performed a laparoscopic cholecystectomy with intraoperative cholangiogram and umbilical hernia repair on 02/10/2018. Patient tolerated the procedure well. Patient denies abdominal discomfort, nausea, vomiting. Her bowel habits have returned to normal. Her appetite has returned to normal. Pathology demonstrated acute and chronic cholecystitis and cholelithiasis. Hernia sac. Exam GI Inspection: normal to inspection, incision (c/d/i. No erythema. Minimal ecchymosis) Palpation: soft Auscultation: normal bowel sounds Assessment AND Plan Problems 1. Gallstone pancreatitis K85.10 2. Hx of umbilical hernia repair Z98.890; Z87.19 Plan - Follow-up as needed Coding Level of Care Code Global Post Op Diagnoses Gallstone pancreatitis K85.10 Hx of umbilical hernia repair Z98.890; Z87.19 03/01/18 1443 <Electronically signed by Yaquelin Hall PA-C> Date Yaquelin Hall PA-C Cosigner Signature: Date (if applicable) CC: Marvel Shaikh MD 12 LEAD ELECTROCARDIOGRAM Observed: 02/15/2018 Status: F Source: [place] 1:40 PM [facility] REPOSITORY [facility] Cardiovascular Services [address] [place] [address] 12 Lead EKG 02/09/18 1516 MR#: [id number] Acct: [id number] Name: OLIVERIO DALY Rep #: [id number] : 1955 63 From: Reno Amaya MD Attending Dr: Cliff Arredondo MD Status: DIS IN Ordering Dr: Johny Valdes DO Date: 02/09/18 [place]: [facility] [place] Sex: F C Admitted: 02/10/18 Test Reason : ABDOMINAL PAIN Blood Pressure : / mmHG Vent. Rate : 086 BPM Atrial Rate : 086 BPM P-R Int : 142 ms QRS Dur : 086 ms QT Int : 360 ms P-R-T Axes : 050 013 018 degrees QTc Int : 430 ms Normal sinus rhythm Nonspecific ST abnormality Abnormal ECG Confirmed by JOSE LUIS COLON, RENO ([id number]), scientific editor ZACK VALVERDE ([id number]) on 02/15/2018 1:39:51 PM Referred By: Marvel Shaikh Confirmed By:RENO AMAYA MD 02/15/18 1339 Date Rneo Amaya MD CC: Marvel Shaikh MD; Johny Valdes DO; Cliff Arredondo MD Signed CBC W/DIFF, AUTOMATED Collected: 02/12/2018 Status: F Source: [place] 6:20 AM [facility] REPOSITORY TYPE CODE TESTS RESULT OUT OF RANGE REFERENCE UNITS LAB L100.1000 4.4-11.0 K/mm3 High WBC 12.1 LAB L100.1200 4.2-5.4 M/mm3 Low RBC 3.33 LAB L100.1300 12.0-15.0 g/dl Low HGB 10.3 LAB L100.1400 37-47 % Low HCT 31.5 LAB L100.1500 81-99 fL Normal MCV 94.6 LAB L100.1600 27.0-32.0 pg Normal MCH 30.9 LAB L100.1700 32-36 g/gl Normal MCHC 32.7 LAB L100.1810 11.6-14.6 % High RDW CV 15.2 LAB L100.1820 35.1-43.9 fl High RDW SD 52.4 LAB L100.1900 150-450 K/mm3 Normal PLT 261 LAB L100.2000 6.2-12.0 fl Normal MPV 10.0 LAB L100.2100 47-70 % High NEUT% 73.0 LAB L100.2200 19-41 % Low LY% 13.0 LAB L100.2300 0-10 % High MONO% 11.0 LAB L100.2400 0-5 % Normal EO% 1.7 LAB L100.2500 0-1 % Normal BASO% 0.1 LAB L100.2550 0.0-0.9 % High IM GRAN % 1.200 Result Comment: IG% - Immature Granulocytes (promyelocytes, myelocytes and metamyelocytes) > 1% indicates that a LEFT SHIFT is Present. LAB L100.2620 2.0-7.7 X10 3/uL High Absolute Neut 8.8 LAB L100.2720 0.83-4.51 X10 3/ul Normal Absolute Lymph 1.57 Performed By: #### L100.0100 #### [facility] [address] [place], [address] DISCHARGE INSTRUCTION Observed: 02/11/2018 Status: F Source: [place] 6:50 AM [facility] REPOSITORY [facility] Medical Records Department [address] [place] [address] Instructions for Home/Discharge Instructions 02/10/18 1134 MR#: [id number] Acct: [id number] Name: OLIVERIO DALY Rep #: [id number] : 1955 63 From: Cliff Arredondo MD PCP: Marvel Shaikh MD Status: ADM IN Discharge Diet: Light diet - advance as tolerated - if you have questions about your diet instructions, please talk to you doctor. Discharge Activity: May Not Drive - for 1 week or while taking narcotic pain medicine. May shower in (days): 1 Lifting Restrictions: 10 pounds Call your doctor if your incision/area has: Continuous Slow Oozing, Sudden Increased Bleeding, Increased Pain/ Swelling, Increased Redness, Foul Smelling Discharge Call your doctor if you observe: Fever of 101 or Higher Suture Line Care: Avoid Pulling/Pushing, Avoid Pinching/Bending Additional Dressing/Incision Instructions:: Change or remove dressing in 4 days. Leave steri-strips in place for 1 week. Allergies/Adverse Reactions: Allergies Penicillins [PCN] Allergy (Verified 02/09/18 14:26) Hives acetaminophen [From Tylenol] Adverse Reaction (Verified 02/09/18 14:26) Rash aspirin [ASA] Adverse Reaction (Verified 02/09/18 14:26) Rash egg Adverse Reaction (Verified 02/09/18 15:54) Food Allergy Pt states she cannot have straight eggs, but mixed with things it is not a problem. Sulfa (Sulfonamide Antibiotics) Adverse Reaction (Verified 02/09/18 14:26) Vomiting Medications to take at Discharge Amlodipine [Norvasc] 5 mg PO DAILY 02/09/18 Benazepril HCl [Lotensin] 20 mg PO QHS 02/09/18 Cholecalciferol (Vitamin D3) [Vitamin D3] 5,000 unit PO QHS 02/09/18 Diphenhydramine HCl [Benadryl Allergy] 25 mg PO BID PRN 02/09/18 Indapamide 1.25 mg PO DAILY 02/09/18 Naproxen 500 mg PO BID PRN 02/09/18 Simvastatin [Zocor] 20 mg PO QHS 02/09/18 Oxycodone [Oxyir] 5 mg PO Q4H PRN PRN 3 Days #10 tablet 02/10/18 The following prescriptions were given: Oxycodone [Oxyir] 5 mg PO Q4H PRN PRN 3 Days #10 tablet PRN Reason: Pain Primary Care Physician: Marvel Shaikh MD [Primary Care Provider] - Please Follow Up With: Cliff Arredondo MD - [phone] When: Call to make an appointment to be seen in about 10 days. 02/11/18 0650 <Electronically signed by Cliff Arredondo MD> Date Cliff Arredondo MD CC: Marvel Shaikh MD OPERATIVE REPORT Observed: 02/11/2018 Status: F Source: [place] 6:50 AM [facility] Medical Records Department [address] [place] [address] Operative Report 02/10/18 1327 MR#: [id number] Acct: [id number] Name: OLIVERIO DALY Rep #: [id number] : 1955 63 From: Cliff Arredondo MD PCP: Marvel Shaikh MD Status: ADM IN Location: [facility] [place] [id number] Problem List (1) Gallstone pancreatitis Status: Acute (2) Umbilical hernia Status: Acute Qualifiers: Obstruction and gangrene presence: without obstruction or gangrene Qualified Code(s): K42.9 - Umbilical hernia without obstruction or gangrene Report of Operation Date of Procedure: 02/10/18 Pre-Operative Diagnosis: Chronic cholecystitis cholelithiasis gallstone pancreatitis Post-Operative Diagnosis: Cholecystitis cholelithiasis gallstone pancreatitis umbilical hernia with incarcerated preperitoneal fat Surgery/Procedure Performed:: Scopic cholecystectomy with cholangiography. Umbilical herniorrhaphy Description of Surgical Findings:: Informed consent was obtained.-year-old female was taken from placement table underwent general ventricular-based anesthesia was sterilely prepped draped clindamycin had been started preoperatively due to elevated fever. A vertical incision was made at the umbilicus and incarcerated umbilical hernia was encountered this was circumferentially dissected free. A having completely released that a varies needle was inserted the abdomen was insufflated CO2 to a pressure of tenderness or pressure a blunt tunneling trocar was handed to me I did not feel comfortable with that so I then used a 5 mm trocar in the epigastric area under Visiport visualization gain access to the abdomen looked back down at the ports at the umbilical site and realized that the site of the Veress needle insertion there was colonic adherence. However the abdomen had been insufflated with air was unclear as to whether there had been any untoward event. I placed 2 more 5 mm trochars in the epigastric and right subcostal area adhesions of omentum to the anterior abdominal wall were sharply lysed was no evidence of any succus no leak. That area was simply marked for later. I placed a 12 mm trocar at the umbilicus the omentum had the gallbladder completely sealed off there was saponification of fat tedious sharp and blunt dissection was required to elevate the thick-walled gallbladder tediously the infundibular area was awkward dissected free and bluntly dissected free until the cystic artery and cystic duct were identified the cystic duct was milked back a Hem-o-norman clip was placed on that incision in the infundibular cystic duct. Cholangiogram inserted through a 14-gauge Angiocath and fluoroscopically controlled claims grams obtained demonstrating normal ductal anatomy and free flow and small bowel no evidence of any intraluminal filling defect. The client Nicola catheter was removed to extra-large Hem-o-norman clips were placed on the infundibular area prior to transecting it. The cystic artery was clipped twice proximally prior to transecting it the gallbladder was dissected free from the liver bed using electrocautery complete hemostasis was intact. Bile other than when the duct ductotomy was created a small amount of sludge was then quickly aspirated free. The gallbladder was then immediately placed in the retrieval bag. There was no spillage of stone or the gallbladder was exited the umbilicus. The umbilical incision was lengthened vertically the portion of colon now was inspected there appear to be a very small serosal tear there was no evidence of any succus no stool. This point however I thought that it would be stanley to simply imbricate the area and I did that with interrupted 4-0 Vicryl but upon so doing I then noticed at one of the needle hole sites from the 4-0 Vicryl a small amount of stool so this was due to the thinness of the bowel I simply then provided a couple more imbricating sutures of interrupted 4-0 Vicryl to completely imbricate the area I then placed a patch of omentum over top and secured that with a 4-0 Vicryl as well. I felt that it was likely small defect caused by the suturing needle due to the thinness of the bowel and that location which represented I believe transverse colon. That was rapidly identified and treated. I did not have clear evidence of either trocar or Veress needle involvement. However I felt that the tissue was then and required Reinforcement. The umbilical hernia now was closed with multiple interrupted [id number] sutures of 0 Nurolon. Skin edges proximate of 4-0 Monocryl. It is of note that prior to completing laparoscopic ports procedure I trimmed a 15 round MAXINE drain to length placed at the subhepatic space exited through the right lateral port site and secured to skin with interrupted 3-0 nylon. That was clipped applied now to close bulb suction. Sponge instrument and needle counts were reported to the surgeon for correct blood loss was minimal she tolerated well was taken to the recovery or insect condition. Specimens include the incarcerated umbilical hernia and contents. The gallbladder. Blood loss minimal. Drains include a 15 round MAXINE the subhepatic space. Cliff Arredondo M.D., F.A.C.S. Type of Anesthesia:: General 02/11/18 0650 <Electronically signed by Cliff Arredondo MD> Date Cliff Arredondo MD CC: Marvel Shaikh MD; Cliff Arredondo MD Signed CBC W/DIFF, AUTOMATED Collected: 02/11/2018 Status: F Source: [place] 6:44 AM [facility] REPOSITORY TYPE CODE TESTS RESULT OUT OF RANGE REFERENCE UNITS LAB L100.1000 4.4-11.0 K/mm3 High WBC 11.5 LAB L100.1200 4.2-5.4 M/mm3 Low RBC 3.27 LAB L100.1300 12.0-15.0 g/dl Low HGB 10.5 LAB L100.1400 37-47 % Low HCT 31.5 LAB L100.1500 81-99 fL Normal MCV 96.3 LAB L100.1600 27.0-32.0 pg High MCH 32.1 LAB L100.1700 32-36 g/gl Normal MCHC 33.3 LAB L100.1810 11.6-14.6 % High RDW CV 15.0 LAB L100.1820 35.1-43.9 fl High RDW SD 51.1 LAB L100.1900 150-450 K/mm3 Normal PLT 220 LAB L100.2000 6.2-12.0 fl Normal MPV 10.0 LAB L100.2100 47-70 % High NEUT% 75.1 LAB L100.2200 19-41 % Low LY% 11.6 LAB L100.2300 0-10 % High MONO% 10.9 LAB L100.2400 0-5 % Normal EO% 1.0 LAB L100.2500 0-1 % Normal BASO% 0.2 LAB L100.2550 0.0-0.9 % High IM GRAN % 1.200 Result Comment: IG% - Immature Granulocytes (promyelocytes, myelocytes and metamyelocytes) > 1% indicates that a LEFT SHIFT is Present. LAB L100.2620 2.0-7.7 X10 3/uL High Absolute Neut 8.7 LAB L100.2720 0.83-4.51 X10 3/ul Normal Absolute Lymph 1.34 Performed By: #### L100.0100 #### [facility] [place], [address] BASIC METABOLIC Collected: 02/11/2018 Status: F Source: [facility] PROFILE (BMP) 6:44 AM [facility] HOSPITAL REPOSITORY TYPE CODE TESTS RESULT OUT OF RANGE REFERENCE UNITS LAB L501.0100 74-106 mg/dL Normal GLU 81 Result Comment: Please note revised GLUCOSE reference range effective 2017. LAB L501.1000 7-18 mg/dL Normal BUN 15 LAB L501.1100 0.55-1.02 mg/dL Normal CREAT,SERUM 0.73 Result Comment: The validity of the calculated GFR AND GFRAA in patients over 70 years has not been determined. Clinical correlation is essential. LAB L501.1110 >60 mL/min Normal EST GFR 85 Result Comment: Non- GFR Calc LAB L501.1115 >60 mL/min Normal EST GFR - AA 103 Result Comment: GFR Calc LAB L501.1255 ml/min Normal Estimated CRCL 66.35 LAB L501.1300 10-20 RATIO High BUN/CRE 20.6 LAB L501.2200 8.5-10 mg/dL Low .1 CA 7.4 LAB L501.5300 136-14 mmol/L Normal 5 NA 136 LAB L501.5600 3.5-5. mmol/L Low 1 K 3.4 LAB L501.5900 98-107 mmol/L Normal CL 102 LAB L501.6100 21.0-3 mmol/L Normal 2.0 CO2 27.0 LAB L501.6200 5-15 Normal GAP 7 Performed By: #### L500.2500 #### [facility] [address] [place], [address] GALLBLADDER Observed: 02/10/2018 Status: F Source: [place] 11:15 AM [facility] REPOSITORY Patient: OLIVERIO DALY : 1955 (63/F) Acct Num: [id number] Phys: Maria Elena COLON,Cliff Unit Num: [id number] Loc: MS3 XL879-9 Specimen: [id number] Received: 02/11/18 - 1141 Spec Type: GALLBLADDE TISSUES TISSUES: A. Gallbladder, NOS B. HERNIA GROSS DESCRIPTION A - Received is one container labeled with the patient's name and designated gallbladder. The specimen consists of a gallbladder measuring 10 cm in length and 4.5 cm in diameter. The external surface is pink-terrazas, smooth and glistening for the most part. Focally it is granular, hemorrhagic and contains cautery artifact. The gallbladder contains green-yellow mucoid bile and multiple brownish-black stones measuring in aggregate 3 x 2 x 0.5 cm and 0.3 to 0.8 cm in greatest dimension. The mucosa is bile-stained and without any mass lesions. The gallbladder wall measures up to 0.3 cm in thickness. Production Clerks Supervisor sections from the gallbladder and the cystic duct are submitted in one cassette. B - Received in fixative is one container labeled with the patient's name and designated hernia sac and contents. The specimen consists of a piece of yellow adipose tissue measuring 3 x 2.6 x 1 cm. Sections do not reveal any mass lesion. Production Clerks Supervisor sections are submitted in one cassette. / ELIEL:werner TC:2 CPT: 39535, 69024 HEADER OPERATION: Laparoscopic cholecystectomy with IOC PRE-OP DIAGNOSIS: Cholelithiasis TISSUE SUBMITTED: A Gallbladder, B Hernia sac and contents MICROSCOPIC DESCRIPTION Slides are reviewed. MICROSCOPIC DIAGNOSIS A. Gallbladder: Acute and chronic cholecystitis with focal ulceration and cholelithiasis. B. Hernia sac and contents: A piece of mature adipose tissue, clinically hernia sac and contents. ELIEL:werner 02/15/18 Signed Chano Tejeda 02/15/18 <signature on file> Performed By: #### PGALL #### [facility] [address] [place], [place] [address]h[place], [address] COMPREHENSIVE METABOLIC Collected: 02/10/2018 Status: F Source: [facility] 5:40 AM [facility] REPOSITORY TYPE CODE TESTS RESULT OUT OF RANGE REFERENCE UNITS LAB L501.0100 74-106 mg/dL Normal GLU 100 Result Comment: Fasting Glucose result from 100 to 125 mg/dL suggests IMPAIRED HOMEOSTASIS per A.D.A. criteria. Please note revised GLUCOSE reference range effective 2017. LAB L501.1000 7-18 mg/dL Normal BUN 13 LAB L501.1100 0.55-1.02 mg/dL Normal CREAT,SERUM 0.66 Result Comment: The validity of the calculated GFR AND GFRAA in patients over 70 years has not been determined. Clinical correlation is essential. LAB L501.1110 >60 mL/min Normal EST GFR 96 Result Comment: Non- GFR Calc LAB L501.1115 >60 mL/min Normal EST GFR - AA 116 Result Comment: GFR Calc LAB L501.1255 ml/min Normal Estimated CRCL 73.38 LAB L501.1300 10-20 RATIO Normal BUN/CRE 19.8 LAB L501.1500 6.4-8. g/dL Low 2 T PROT 6.1 LAB L501.1800 3.2-5. g/dL Low 0 ALB 2.3 LAB L501.1950 2.2-4. g/dL Normal 2 GLOB 3.8 LAB L501.2000 0.9-2. RATIO Low 4 A/G 0.6 LAB L501.2200 8.5-10 mg/dL Low .1 CA 7.6 LAB L501.4100 15-37 U/L Normal AST 33 LAB L501.4305 45-117 U/L Normal ALK P 65 LAB L501.4405 13-56 U/L High ALT 127 LAB L501.4600 0.20-1 mg/dL Normal .00 T BILI 1.00 LAB L501.5300 136-14 mmol/L Normal 5 NA 137 LAB L501.5600 3.5-5. mmol/L Low 1 K 3.4 LAB L501.5900 98-107 mmol/L Normal CL 102 LAB L501.6100 21.0-3 mmol/L Normal 2.0 CO2 29.0 LAB L501.6200 5-15 Normal GAP 6 Performed By: #### L500.4050, L501.2450 #### [facility] [address] [facility] [place], [place], [id number] LIPASE Collected: 02/10/2018 Status: F Source: [place] 5:40 AM [facility] REPOSITORY TYPE CODE TESTS RESULT OUT OF RANGE REFERENCE UNITS LAB L501.2450 73-393 U/L Normal LIPASE 304 Performed By: #### L500.4050, L501.2450 #### [facility] [address] [place], [place], [id number] CBC W/DIFF, AUTOMATED Collected: 02/10/2018 Status: F Source: [place] 5:40 AM [facility] REPOSITORY TYPE CODE TESTS RESULT OUT OF RANGE REFERENCE UNITS LAB L100.1000 4.4-11.0 K/mm3 Normal WBC 10.2 LAB L100.1200 4.2-5.4 M/mm3 Low RBC 3.49 LAB L100.1300 12.0-15.0 g/dl Low HGB 10.9 LAB L100.1400 37-47 % Low HCT 33.2 LAB L100.1500 81-99 fL Normal MCV 95.1 LAB L100.1600 27.0-32.0 pg Normal MCH 31.2 LAB L100.1700 32-36 g/gl Normal MCHC 32.8 LAB L100.1810 11.6-14.6 % Normal RDW CV 14.6 LAB L100.1820 35.1-43.9 fl High RDW SD 48.7 LAB L100.1900 150-450 K/mm3 Normal PLT 196 LAB L100.2000 6.2-12.0 fl Normal MPV 10.3 LAB L100.2100 47-70 % High NEUT% 78.5 LAB L100.2200 19-41 % Low LY% 9.8 LAB L100.2300 0-10 % High MONO% 10.4 LAB L100.2400 0-5 % Normal EO% 0.7 LAB L100.2500 0-1 % Normal BASO% 0.2 LAB L100.2550 0.0-0.9 % Normal IM GRAN % 0.400 Result Comment: IG% - Immature Granulocytes (promyelocytes, myelocytes and metamyelocytes) > 1% indicates that a LEFT SHIFT is Present. LAB L100.2620 2.0-7.7 X10 3/uL High Absolute Neut 8.0 LAB L100.2720 0.83-4.51 X10 3/ul Normal Absolute Lymph 1.00 Performed By: #### L100.0100 #### [facility] [address] [place], [address] CHOLANGIOGRAM/ O Observed: 02/09/2018 Status: F Source: [place] R,INITIAL 11:39 PM [facility] REPOSITORY [facility] Imaging Services [address] [place] [address] Cholangiogram/ O R,Initial MR#: [id number] Acct: [id number] Name: OLIVERIO DALY Rep #: [id number] : 1955 F 63 From: Demarcus Julio MD PCP: Neel COLON,Marvel Status: ADM FADI Study: Cholangiogram/ O R,Initial Date of Exam: 02/10/18 Exam# [id number] Ordering Dr: Cliff Arredondo MD STUDY: INTRAOPERATIVE CHOLANGIOGRAM. REASON FOR EXAM: Female, 63 years old. Laparoscopic cholecystectomy. FLUOROSCOPY TIME (if supplied): (15.8 seconds) minutes/seconds TECHNIQUE: Intraoperative cholangiogram was performed by the surgeon. Imaging was submitted. COMPARISON: None. FINDINGS: The common bile duct is not dilated. No intraluminal filling defect is seen. There is free flow of contrast into the duodenum. RAD/Cholangiogram/ O R,Initial IMPRESSION: Unremarkable intraoperative cholangiogram. Electronically Signed: Demarcus Julio MD at 12:45 EDT Tel [phone], Service support , CC: Marvel Shaikh MD; Cliff Arredondo MD Product Marketing Specialist: Signed HISTORY AND PHYSICAL Observed: 02/09/2018 Status: F Source: [place] EXAM 5:16 PM [facility] REPOSITORY [facility] Medical Records Department [address] [place] [address] History and Physical 02/09/18 1620 MR#: [id number] Acct: [id number] Name: OLIVERIO DALY Rep #: [id number] : 1955 63 From: Yaquelin Hall PA-C PCP: Neel COLON,Marvel Status: ADM FADI Y Location: [place] [address] ADDENDUM by Cliff Arredondo MD on 02/09/18 at 1716 Code Visit 63-year-old female. She presents to the emergency room. Her greatest concern is extreme fatigue. She has been ill now for multiple days since this past weekend at least 5 days. She does take antihypertensives and does not take any potassium supplementation. She has been routinely taking naproxen for chronic back pain. She now admits that she stopped her naproxen a couple days ago but over the weekend she thinks her stools have turned dark. She is complaining of right upper quadrant pain particularly to touch. She is never previously had peptic ulcer disease. She is not on any medications for peptic ulcer disease. She denies any previous episodes of severe hypokalemia. Her last bowel movement was earlier today and was somewhat dark. She denies chest pain. She has no shortness of breath. She has had no history of deep venous thrombosis. I concur with the findings of Yaquelin Hall on history and clinical examination. It is pertinent that the patient does have clear breath sounds. Cardiac is regular. Her abdomen is notable for a small incisional umbilical hernia from a previous laparoscopic tubal ligation. She is tender to palpation of the right upper quadrant with firmness and slight guarding. The lower quadrants otherwise are soft. Rectal exam was deferred at the moment. Her calves are quite thick but nontender and supple. Neurologically she is completely alert and intact. Her routine medications were reviewed and did not include any anticoagulants other than the naproxen. Her allergies however include penicillin and acetaminophen and aspirin and egg and sulfa Her most recent testing that was performed today included an ultrasound of the gallbladder right upper quadrant. The liver is slightly enlarged at 19.4 cm. Gallbladder has a 2.8 mm wall. No pericholecystic fluid. Multiple gallstones noted. Common bile duct is 5.6 mm. The pancreatic head was normal. Right kidney was normal. Her white blood cell count is 10.2. Her hemoglobin is 11.9 with hematocrit 35.3 which would be artificially low understanding that she presents with dehydration Has seen Ms. 2.7. Chloride 93. BUN is 21. Creatinine 0.95. Direct bilirubin is 0.11. Total bilirubin 1.2. AST 38 with a ALT of 192. C-reactive protein is 297. Alkaline phosphatase 85. Albumin is low at 2.8. Lipase is 589. Surgery has been consulted and requested to provide admission with a tentative diagnosis of gallstone pancreatitis. My current concerns revolve around the patient's extreme fatigue. She has a relatively low hemoglobin taking into account her dehydration. She has report of excessive naproxen utilization. She complains of dark stools. She is dehydrated. She has significant hypokalemia. I will provide a liter of saline as a bolus. She will get oral and IV potassium replacement. She will receive IV magnesium. I will utilize sequential venous compression devices for DVT prophylaxis and not use chemical prophylaxis due to her possible gastritis and GI bleed. Stool will be checked for hemoglobin. She will be encouraged to mobilize as tolerated. I anticipate rechecking laboratory in the morning. Pending her progress tentatively plan to proceed with a laparoscopic cholecystectomy with cholangiography tomorrow and she is aware the technique, benefits, risks, alternatives. This will depend upon her clinical progress. She has had an opportunity to ask and have questions answered. We will try to medically maximize her care prior to considering surgical treatment. Cc: Dr. Marvel Arredondo M.D., F.A.C.S. 02/09/18 0946 <Electronically signed by Cliff Arredondo MD> Date Cliff Arredondo MD cc: Yaquelin Hall PA-C; Marvel Shaikh MD; Cliff Arredondo MD * Signed Problem List (1) Cholelithiasis Status: Acute (2) RUQ abdominal pain Status: Acute History of Present Illness Date of Admission: 02/09/18 Chief Complaint: Right upper quadrant pain. Nausea, vomiting. The patient is a 63 year old F who presents with 4 day history of nausea, vomiting and RUQ abdominal pain. Patient notes on Tuesday she started to vomit. She did not have much of an appetite. She attempted to eat some toast. She continued with nausea, vomiting symptoms. Patient stated she thought she had the flu. She noted also being weak and tired. Patient's daughter made an appointment with her PCP, Dr. Shaikh for today. She was evaluated in the office and was referred to the [place] for lab work and RUQ u/s. Lab work demonstrated WBC 10.2, Hgb 11.9, Hct 35.3, and plt 185. Potassium was 2.7, BUN 21, Total bilirubin 1.20, AST 38, ALT 192, CRP 297, and lipase of 589. RUQ u/s demonstrated multiple gallstones, no pericholecystic fluid, negative sonographic Delaney's sign. Normal pancreas. Patient was instructed by Dr. Shaikh to present to the ED for admission. Patient denies having similar symptoms previously. She was unaware she had gallstones. She denies bowel habit changes. She denies previous myocardial infarction, stroke, blood clots. She denies having to be evaluated by a body shop estimator previously. She denies being on blood thinners. Patient notes previous abdominal surgeries as tubal ligation and 1 . She denies history of smoking. She occasionally drinks a glass a wine. Past Medical History Allergies Penicillins [PCN] Allergy (Verified 02/09/18 14:26) Hives acetaminophen [From Tylenol] Adverse Reaction (Verified 02/09/18 14:26) Rash aspirin [ASA] Adverse Reaction (Verified 02/09/18 14:26) Rash egg Adverse Reaction (Verified 02/09/18 15:54) Food Allergy Pt states she cannot have straight eggs, but mixed with things it is not a problem. Sulfa (Sulfonamide Antibiotics) Adverse Reaction (Verified 02/09/18 14:26) Vomiting Home Medications: Ambulatory Orders Medication Instructions Recorded Surgical History: - - Tubal ligation and 1 Psychiatric History: No pertinent psych hx MANAGER PRINTING History: No pertinent MANAGER PRINTING history Lives: Alone Smoking Status: Never smoker Alcohol: None Drugs: None - *Family History Maternal History Items: No pertinent history Paternal History Items: No pertinent history Review of Systems Constitutional: Reports: Anorexia, Malaise, Weakness, Fatigue. Denies: Chills, Fever HEENT: Denies: Head Aches, Sinus Congestion, Sinus Drainage Cardiovascular: Denies: Chest Pain, Palpitations Respiratory: Denies: Cough, Shortness of breath at rest, Sputum production Gastrointestinal: Reports: Abdominal Pain, Nausea, Vomiting Genitourinary: Denies: Dysuria Musculoskeletal: Reports: Back Pain. Denies: Joint Pain, Joint Tenderness Skin: Denies: Rash, Wounds Neurological: Denies: Numbness, Tingling, Focal weakness Psychiatric: Denies: Anxiety, Depression, Homicidal Ideations, Suicidal Ideations Hematologic/ Lymphatic: Denies: Easy Bruising, Easy Bleeding, Hx of blood clot VTE Information - Inpt Only VTE Present on Admission: Yes VTE Mechan Device Prophylaxis: SCD's Patient Problems: Active and Suspected Problems Abdominal pain (Acute) Cholelithiasis (Acute) RUQ abdominal pain (Acute) - Physical Exam General: Alert, Oriented x3, Cooperative HEENT: Atraumatic, PERRLA, EOMI, Normocephalic Neck: Supple, No JVD, Negative Carotid Bruits Lungs: Clear to auscultation, Normal air movement Cardiovascular: Regular rate, No murmurs Abdomen: Soft, Hypoactive Bowel Sounds, Distended, Tender - RUQ. Positive Delaney's sign Extremities: No edema, Capillary Refill Less than 3 Seconds Skin: No rashes, No breakdown Musculoskeletal: No Tenderness to Palpation of Joints or Extremities Neurological: Neuro grossly intact Psych/Mental Status: Normal Affect, Appropriate Vital Signs Temp Pulse Resp BP Pulse Ox 97.2 F L 95 14 109/56 L 98 02/09/18 14:23 02/09/18 14:23 02/09/18 14:23 02/09/18 14:23 02/09/18 14:23 Oxygen Delivery Method Room Air Weight: 178 lb 2.136 oz Body Mass Index (BMI) 30.5 Assessment/Plan Active and Suspected Problems Abdominal pain (Acute) Cholelithiasis (Acute) RUQ abdominal pain (Acute) I have been asked to evaluate this patient in conjunction with Dr. Arredondo. Impression: Nausea, vomiting, RUQ abdominal pain. Cholelithiasis. Hypokalemia Plan: I have discussed this patient in conjunction with Dr. Arredondo. Dr. Arredondo will plan to perform a laparoscopic cholecystectomy with intraoperative cholangiogram tomorrow. Dr. Arredondo will review the procedure with the patient. We will admit the patient to the med/surg floor. We will replace patient's potassium and recheck lab work in the morning. Patient and her daughter have had the opportunity to ask questions up to this point. Dr. Arredondo will review additional questions with the patient. Thank you for allowing us the opportunity to participate in this patient's care. My recommendations will be available via electronic medical records. 02/09/18 2672 <Electronically signed by Yaquelin Hall PA-C> Date Yaquelin Hall [facility]-C [facility] Signature: Date (if applicable) CC: Yaquelin Hall PA-C; Marvel Shaikh MD; Cliff Arredondo MD Signed EMERGENCY DEPARTMENT Observed: 02/09/2018 Status: F Source: [place] SUMMARY 3:28 PM [facility] REPOSITORY [facility] Medical Records Department [address] [place] [address] Emergency Department Summary 02/09/18 1445 MR#: [id number] Acct: [id number] Name: OLIVERIO DALY Rep #: [id number] : 1955 63 From: Johny Valdes DO PCP: Neel COLON,Marvel Status: REG ER - ER Visit Summary Date of Service: 02/09/18 Chief Complaint: [] Abdominal pain, weight loss. History of Present Illness: The patient is a 63 F [] complaining of 12 pound weight loss in the last 4 days secondary to pain, and nausea and vomiting. Patient was seen today as an outpatient and underwent right upper quadrant ultrasound and outpatient laboratory testing. Labs reveal an elevated lipase at 589 consistent with pancreatitis. CBC normal, BMP normal with exception of a sodium of 132 potassium 2.7, respectively. CRP significantly elevated at 297. Right upper quadrant ultrasound reveals cholelithiasis with a gallbladder wall thickness of 2.8 mm. Physical Examination: [] Afebrile, vital signs stable. 63-year-old female no acute distress. Cardiovascular exam is regular rate and rhythm. Lungs clear to auscultation. Abdomen is soft with right upper quadrant tenderness on exam. No guarding or rebound noted. 1+ symmetric lower extremity edema. Remainder of exam is unremarkable. Test Results: [] All test results from earlier today are reviewed. Emergency Department Course and Treatment: [] Patient given intravenous fluids and morphine and Phenergan for symptom relief. Case discussed with hospitalist for admission and further treatment and evaluation. Treatment Plan: [] NPO. IV fluids. Case discussed with the patient's requested surgeon, Dr. Harrell. He will be in to the emergency department to evaluate the patient at the completion of his outpatient complement of patients. Disposition: [] Admit, stable. Impression: [] Gallstone pancreatitis Hypokalemia Hyponatremia Functional decline This note was generated with [employer] dictation software. It may contain incorrect words, spelling, and punctuation that were not noted in review of the chart prior to signing ED Disposition - Plan for ED Patient: Chief Complaint: Abd Pain Referrals: Marvel Shaikh MD [Primary Care Provider] - What to do if you have Problems For any increased pain, shortness of breath, bleeding, nausea or vomiting, chest pain, or any unexpected problems, contact your Primary Care Provider. Call [employer] [facility] ([phone]) or report to the closest Emergency Room. Call 911 if necessary. 02/09/18 1528 <Electronically signed by Johny Valdes DO> Date Johny Valdes DO Cosigner Signature (If Indicated): Date CC: Marvel Shaikh MD CBC W/DIFF, AUTOMATED Collected: 02/09/2018 Status: F Source: [place] 1:03 PM [facility] REPOSITORY TYPE CODE TESTS RESULT OUT OF RANGE REFERENCE UNITS LAB L100.1000 4.4-11.0 K/mm3 Normal WBC 10.2 LAB L100.1200 4.2-5.4 M/mm3 Low RBC 3.80 LAB L100.1300 12.0-15.0 g/dl Low HGB 11.9 LAB L100.1400 37-47 % Low HCT 35.3 LAB L100.1500 81-99 fL Normal MCV 92.9 LAB L100.1600 27.0-32.0 pg Normal MCH 31.3 LAB L100.1700 32-36 g/gl Normal MCHC 33.7 LAB L100.1810 11.6-14.6 % Normal RDW CV 14.5 LAB L100.1820 35.1-43.9 fl High RDW SD 49.7 LAB L100.1900 150-450 K/mm3 Normal PLT 185 LAB L100.2000 6.2-12.0 fl Normal MPV 9.9 LAB L100.2100 47-70 % High NEUT% 78.7 LAB L100.2200 19-41 % Low LY% 11.8 LAB L100.2300 0-10 % Normal MONO% 8.5 LAB L100.2400 0-5 % Normal EO% 0.7 LAB L100.2500 0-1 % Normal BASO% 0.1 LAB L100.2550 0.0-0.9 % Normal IM GRAN % 0.200 Result Comment: IG% - Immature Granulocytes (promyelocytes, myelocytes and metamyelocytes) > 1% indicates that a LEFT SHIFT is Present. LAB L100.2620 2.0-7.7 X10 3/uL High Absolute Neut 8.1 LAB L100.2720 0.83-4.51 X10 3/ul Normal Absolute Lymph 1.21 Performed By: #### L100.0100 #### [facility] [address] [place], [address] COMPREHENSIVE METABOLIC Collected: 02/09/2018 Status: F Source: [facility] 1:03 PM [facility] REPOSITORY TYPE CODE TESTS RESULT OUT OF RANGE REFERENCE UNITS LAB L501.0100 74-106 mg/dL Normal GLU 104 Result Comment: Fasting Glucose result from 100 to 125 mg/dL suggests IMPAIRED HOMEOSTASIS per A.D.A. criteria. Please note revised GLUCOSE reference range effective 2017. LAB L501.1000 7-18 mg/dL High BUN 21 LAB L501.1100 0.55-1.02 mg/dL Normal CREAT,SERUM 0.95 Result Comment: The validity of the calculated GFR AND GFRAA in patients over 70 years has not been determined. Clinical correlation is essential. LAB L501.1110 >60 mL/min Normal EST GFR 62 Result Comment: Non- GFR Calc LAB L501.1115 >60 mL/min Normal EST GFR - AA 76 Result Comment: GFR Calc LAB L501.1300 10-20 RATIO High BUN/CRE 22.0 LAB L501.1500 6.4-8.2 g/dL T Normal PROT 6.9 LAB L501.1800 3.2-5.0 g/dL Low ALB 2.8 LAB L501.1950 2.2-4.2 g/dL Normal GLOB 4.1 LAB L501.2000 0.9-2.4 RATIO Low A/G 0.7 LAB L501.2200 8.5-10.1 mg/dL Low CA 8.1 LAB L501.4100 15-37 U/L High AST 38 LAB L501.4305 45-117 U/L Normal ALK P 85 LAB L501.4405 13-56 U/L High ALT 192 LAB L501.4600 0.20-1.00 mg/dL High T BILI 1.20 LAB L501.5300 136-145 mmol/L Low NA 132 LAB L501.5600 3.5-5.1 mmol/L Low K alert 2.7 Result Comment: Critical Result(s) Called at: 13:54:49 02/09/2018 by: Jonnathan rosario MBloughRN ([phone]) LAB L501.5900 98-107 mmol/L Low CL 93 LAB L501.6100 21.0-32.0 mmol/L High CO2 33.0 LAB L501.6200 5-15 Normal GAP 6 Performed By: #### L500.4050, L501.2450, L501.6710 #### [facility] [address] [place], [place], [id number] LIPASE Collected: 02/09/2018 Status: F Source: [place] 1:03 PM [facility] REPOSITORY TYPE CODE TESTS RESULT OUT OF REFERENCE UNITS RANGE LAB L501.2450 73-393 U/L High LIPASE 589 Performed By: #### L500.4050, L501.2450, L501.6710 #### [facility] [address] [place], [address] CRP Collected: 02/09/2018 Status: F Source: [place] 1:03 PM [facility] REPOSITORY TYPE CODE TESTS RESULT OUT OF RANGE REFERENCE UNITS LAB L501.6710 0.0-3.0 mg/L High 297.00 C-REACTIVE PROT Result Comment: C-Reactive Protein (CRP) provides useful information for the diagnosis, therapy and monitoring of inflammatory processes and associated diseases. For the evaluation of Relative Risk for Cardiovascular Disease, a High Sensitivity CRP (HSCRP) should be ordered. Performed By: #### L500.4050, L501.2450, L501.6710 #### [facility] [address] [place], [place], [address] HEPATITIS A AB, TOTAL Collected: 02/09/2018 Status: F Source: [place] 1:03 PM [facility] REPOSITORY TYPE CODE TESTS RESULT OUT OF RANGE REFERENCE UNITS LAB L3100.0300 Negative Normal HEP A Negative AB,T.6726 Result Comment: Performed at: [facility] [id number] Imcu Specialist: Des Eden PhD, Phone: [phone] Performed By: #### L3100.0300, L3100.0625 #### [facility] (refer to report for specific site) refer to report for address and phone number HEPATITIS C ANTIBODIES Collected: 02/09/2018 Status: F Source: [place] 1:03 PM [facility] REPOSITORY TYPE CODE TESTS RESULT OUT OF RANGE REFERENCE UNITS LAB L3100.0650 0.0-0.9 s/co ratio Normal HEP C AB <0.1 Result Comment: Negative: < 0.8 Indeterminate: 0.8 - 0.9 Positive: > 0.9 The CDC recommends that a positive HCV antibody result be followed up with a HCV Nucleic Acid Amplification test (879890). Performed By: #### L3100.0300, L3100.0625 #### [facility] (refer to report for specific site) refer to report for address and phone number ABDOMEN LIMITED Observed: 02/09/2018 Status: F Source: [place] 12:32 PM [facility] REPOSITORY [facility] Imaging Services [address] [place] [address] Abdomen Limited MR#: [id number] Acct: [id number] Name: OLIVERIO DALY Rep #: [id number] : 1955 F 63 From: Marcellus Nunn PCP: Marvel Shaikh MD Status: REG CLI Study: Abdomen Limited Date of Exam: 02/09/18 Exam# [id number] Ordering Dr: Marvel Shaikh MD STUDY: ABDOMINAL ULTRASOUND - RIGHT UPPER QUADRANT REASON FOR VISIT: Female, 63 years old. RUQ pain. TECHNIQUE: Ultrasound evaluation of the right upper quadrant was performed with real-time and static sue-scale imaging. TECHNICAL QUALITY: Adequate. COMPARISON: None. FINDINGS: Liver: The liver measures 19.4 cm. There is normal echogenicity of the liver. The bile ducts are within normal limits. There is hepatic color flow. The direction of portal flow is hepatopetal. There is no demonstrated mass lesion. Gallbladder: Normal distended gallbladder. The gallbladder wall measures 2.8 mm. There is a negative sonographic Delaney's sign. There is no pericholecystic fluid. There are multiple echogenic structures within the gallbladder, consistent with multiple gallstones. Common Bile Duct (C.B.D.): The common bile duct measures 5.6 mm. Pancreas: Normal size of the head, body of the pancreas. There is normal echogenicity of the pancreas. There is no demonstrated pancreatic mass or cyst. Right Kidney: Normal size of the right kidney. The right kidney measures 10.1 cm. Normal renal cortex. The right cortex measures cm. There is no demonstrated renal mass or cyst. There is no right hydronephrosis. US/Abdomen Limited IMPRESSION: Cholelithiasis. Electronically Signed: Marcellus Nunn MD at 13:17 EDT Tel , Service support , CC: Marvel Shaikh MD Product Marketing Specialist: Signed ALLERGIES ALLERGIES DATE TYPE / CODE NAME / CODE REACTION SEVERITY SOURCE 02/09/2018 Drug Penicillins/F Hives Unknown [facility]4160 015458524(RXN Hospital 25500(SNOMED ORM) Repository CT) 02/09/2018 Drug Sulfa Vomiting Unknown [place] [facility] All[facility]/4160 (Sulfonamide Hospital 87517(SNOMED Antibiotics)/ Repository CT) [id number](RX NORM) 02/09/2018 Drug aspirin/F0060 Rash Unknown [facility] Allergy/4160 01097(RXNORM) Hospital 81234(SNOMED Repository CT) 02/09/2018 Drug acetaminophen Rash Unknown [facility] Allergy/4160 /[id number](R Hospital 34087(SNOMED XNORM) Repository CT) 02/09/2018 Drug egg/[id number] Food Allergy Unknown [facility] Allergy/4160 7(RXNORM) Hospital [address]758(SNOMED Repository CT) ENCOUNTERS ENCOUNTERS ADMIT/DISCHARGE ACCOUNT ADMITTING ENCOUNTER LOCATION SOURCE NUMBER CLASS 08/17/2018 [id number] Ambulatory [facility] ing:OPBD Repository 03/27/2018 [id number] Ambulatory [place] [facility] 5 [facility] ing:MTRAD Repository 03/01/2018/ [id number] Ambulatory BMSBuilding:B [facility] 8 0 [facility] Repository 02/20/2018 [id number] Ambulatory BMSBuilding:B [place] 2 [facility] Repository 02/10/2018/ [id number] Cliff Arredondo Inpatient [place] [facility] 8 1 Encounter [facility] ing:OA3Ieqz: Repository GD962Axq: 1 02/10/2018 [id number] Cliff Arredondo Ambulatory BMSBuilding:B [place] 2 MS.[facility] Repository 02/10/2018/ [id number] Ambulatory BMSBuilding:B [place] 8 6 MS.[facility] Repository 02/10/2018/ [id number] Ambulatory BMSBuilding:B [place] 8 1 MS.[facility] Repository 02/09/2018 [id number] Ambulatory BMSBuilding:B [place] 1 [facility] Repository 02/09/2018 [id number] Ambulatory [place] [facility] Hospital ing:US Repository PAYERS PAYERS ENCOUNTER GUARANTOR PAYER SUBSCRIBER SOURCE 08/17/2018 OLIVERIO [id number] Primary OLIVERIO L [place] Insurance:MEDICARE KUNTZDOB: [place] PART A [facility] [id number] Hospital 39463Czh: (330) Number: Repository [phone] () [id number] Date:2018-06-26 08/17/2018 Secondary OLIVERIO L [place] [facility] [id number] Hospital Number: Repository [id number] Date:2957-25-83DL [address] [address]RX: 08/17/2018 Tertiary NOT GIVENUNK [place] Insurance:SELF PAY [facility] Hospital Number: Effective Repository Date:2018-06-26 03/27/2018 OLIVERIO L [id number] Primary OLIVERIO L [place] Insurance:MEDICARE [facility]: [place] PART A [facility] [id number] Hospital [address]Fxe: (330) Number: Repository [phone] () [id number] Date:2018-03-27 03/27/2018 Secondary OLIVERIO L [place] Insurance:[facility]: [facility] [id number] Hospital Number: Repository [id number] Date:2651-77-89[address] [address]FH: 03/27/2018 Tertiary NOT GIVENUNK [place] Insurance:SELF PAY [facility] Hospital Number: Effective Repository Date:2018-03-27 03/01/2018 OLIVERIO L [id number] Primary OLIVERIO L [place] Insurance:MEDICARE KUNTZDOB: [place] A [facility] [id number] Hospital 165[address]Mxs: (330) Number: Repository [phone] () [id number] Date:2018-02-28 03/01/2018 Secondary OLIVERIO L [place] Insurance:[facility]: [facility] [id number] Hospital Number: Repository [id number] Date:5760-61-70PP [address] [place] [address]PD: 03/01/2018 Tertiary NOT GIVENUNK [place] Insurance:SELF PAY [facility] Number: Effective Repository Date:2018-03-01 02/20/2018 OLIVERIO Jaime [id number] Primary OLIVERIO L [place] Insurance:MEDICARE [facility]: [place] A [facility] [id number] Hospital [address]Lcb: (330) Number: Repository [phone] () [id number] Date:2018-02-14 02/20/2018 Secondary OLIVERIO L [place] Insurance:[facility]: [facility] [id number] Hospital Number: Repository [id number] Date:8092-70-25QB [address] [place] [address]TG: 02/20/2018 Tertiary NOT GIVENUNK [place] Insurance:SELF PAY [facility] Number: Effective Repository Date:2018-02-28 02/10/2018 OLIVERIO L [id number] Primary OLIVERIO L [place] Insurance:MEDICARE KUNTZDOB: [place] A [facility] [id number] Hospital [address]Vkw: (330) Number: Repository [phone] () [id number] Date:2018-02-09 02/10/2018 Secondary OLIVERIO L [place] Insurance:[facility]: [facility] [id number] Hospital Number: Repository [id number] Date:6198-42-71ED [address] [address]NX: 02/10/2018 Tertiary NOT GIVENUNK [place] Insurance:SELF PAY [facility] Number: Effective Repository Date:2018-02-09 02/10/2018 OLIVERIO L [id number] Primary OLIVERIO L [place] Insurance:MEDICARE KUNTZDOB: [place] [facility] [id number] Hospital [address]Qal: (330) Number: Repository [phone] (HP) [id number] Date:2018-02-09 02/10/2018 Secondary OLIVERIO L [place] Insurance:[facility]: [facility] [id number] Hospital Number: Repository [id number] Date:4758-43-09WR [address] [address]PL: 02/10/2018 Tertiary NOT GIVENUNK [place] Insurance:SELF PAY [facility] Hospital Number: Effective Repository Date:2018-02-10 02/10/2018 OLIVERIO L [id number] Primary OLIVERIO L [place] Insurance:[facility]IC[facility]: [facility] [id number] Hospital [address]Kyh: (330) Number: Repository [phone] () [id number] Date:2018-02-09 02/10/2018 Secondary OLIVERIO L [place] Insurance:[facility]: [facility] [id number] Hospital Number: Repository [id number] Date:4816-30-93NA[address] [address]JT: 02/10/2018 Tertiary NOT GIVENUNK [place] Insurance:SELF PAY [facility] Number: Effective Repository Date:2018-02-10 02/10/2018 OLIVERIO L [id number] Primary OLIVERIO L [place] Insurance:MEDICARE KUNTZDOB: [facility] [id number] Hospital [address]Igo: (330) Number: Repository [phone] () [id number] Date:2018-02-09 02/10/2018 Secondary OLIVERIO L [place] Insurance:[facility]: [facility] [id number] Hospital Number: Repository [id number] Date:8431-10-96ER[address] [address]WN: 02/10/2018 Tertiary NOT GIVENUNK [place] Insurance:SELF PAY [facility] Number: Effective Repository Date:2018-02-09 02/09/2018 OLIVERIO [id number] Primary OLIVERIO L [place] Insurance:MEDICARE KUNTZDOB: [place] PART A [facility] [id number] Hospital [address]Xlj: (330) Number: Repository [phone] () [id number] Date:2018-02-09 02/09/2018 Secondary OLIVERIO L [place] Insurance:MEDICAL KUNTZDOB: [facility] [id number] Hospital Number: Repository [id number] Date:6515-94-52LJ [address] [address]SC: 02/09/2018 Tertiary NOT GIVENUNK [place] Insurance:SELF PAY [facility] Hospital Number: Effective Repository Date:2018-02-09 02/09/2018 OLIVERIO Jaime [id number] Primary OLIVERIO [place] Insurance:MEDICARE KUNTZDOB: [place] PART [place] [facility] [id number] Hospital [address]Jsj: (330) Number: Repository [phone] () [id number] Date:2018-02-09 02/09/2018 Secondary OLIVERIO L [place] Insurance:MEDICAL KUNTZDOB: [facility] [id number] Hospital Number: Repository [id number] Date:0079-78-09TU [address] [place] [address]SD: 02/09/2018 Tertiary NOT GIVENUNK [place] Insurance:SELF PAY [facility] Hospital Number: Effective Repository Date:2018-02-09
== END ==
PROVIDERS: Family Provider Family Medicine; PCP Family Medicine; Referring Provider Family Medicine; Visit Provider Family Medicine
DX: Z78.0 Asymptomatic menopausal state (principal); Z12.31 Encounter for screening mammogram for malignant neoplasm of breast
CPT/HCPCS: 77063; 77067; 77080

== ENCOUNTER → 2019-01-01 08:38 | Outpatient (CLI) | payer MEDICARE, OTHER, SELFPAY ==
[2018-02-10 09:35] VITALS: BMI 30.9
[2019-01-01 10:41] LABS: ALB/GLOB Ratio 1.3 RATIO (0.9-2.4); AST(SGOT) 22 U/L (15-37); Alanine Aminotransfer ALT/SGPT 25 U/L (13-56); Albumin, Serum 4.3 g/dL (3.2-5.0); Alkaline Phosphatase 36 U/L (45-117); Anion Gap 5 (5-15); BUN 14 mg/dL (7-18); BUN/Creat Ratio 15.1 RATIO (10-20); Calcium,Total 8.8 mg/dL (8.5-10.1); Chloride 104 mmol/L (98-107); Creatinine, Serum 0.93 mg/dL (0.55-1.02); EST Glomerular Filtration Rate 64 mL/min (>60); Est Glom Filt Rate - Afr Amer 78 mL/min (>60); Globulin 3.2 g/dL (2.2-4.2); Glucose 88 mg/dL (74-106); Potassium 3.9 mmol/L (3.5-5.1); Protein, Total 7.5 g/dL (6.4-8.2); Sodium Level 137 mmol/L (136-145); Thyroid Stim Hormone (TSH) 1.87 uIU/mL (0.358-3.74)
[2019-01-01 10:43] LABS: Microalbumin,Random Urine < 5.0 mg/L (NO RANGE EST.)
== END ==
PROVIDERS: Family Provider Family Medicine; PCP Family Medicine; Referring Provider Family Medicine; Visit Provider Family Medicine
DX: I10 Essential (primary) hypertension (principal); E78.00 Pure hypercholesterolemia, unspecified
CPT/HCPCS: 36415; 80053; 82043; 82570; 84443

== ENCOUNTER → 2020-06-03 09:44 | Outpatient (CLI) | payer MEDICARE, OTHER, SELFPAY ==
--- NOTE | 2020-06-03 09:46 | BI_ITS ---
MAMMOGRAPHY - BILATERAL SCREENING REASON FOR EXAM: Female, 65 years old. Routine annual screening examination. PERTINENT HISTORY: Non-contributory. Remote right stereotactic breast biopsy. TECHNIQUE: Digital bilateral breast merle (3D mammographic acquisition) in the CC and MLO projections. 2-D mediolateral oblique (MLO) and craniocaudad (CC) views of both breasts were obtained. CAD: Full Field Digital Mammography with Computer Added Detection was performed. COMPARISON: Comparison is made with prior study dated 08/17/2018 and 06/14/2016. FINDINGS: Breast Composition: There are scattered areas of fibroglandular density. There are no dominant masses or suspicious calcifications. Stable 1.2 cm nodule in the deep upper lateral aspect of the right breast. A tissue clip marker is seen within it. Progressive calcification within the nodule since the prior study. No other significant abnormalities are identified. There has been no significant change since the prior study. BI/SCREENING MAMM (CAD), BILAT IMPRESSION: Stable bilateral screening mammogram. Yearly follow-up mammogram recommended. (A) ASSESSMENT CATEGORY: BIRADS Category 2: Benign. A letter regarding these results will be sent to the patient by the facility within 30 days. Approximately 10% of breast cancers are not detected by mammography. A normal mammogram should not delay biopsy of a clinically suspicious abnormality. [id number] Electronically Signed: Demarcus Julio, at 10:52 EDT , Service support ,
== END ==
PROVIDERS: PCP Family Medicine; Referring Provider Family Medicine; Visit Provider Family Medicine
DX: Z12.31 Encounter for screening mammogram for malignant neoplasm of breast (principal)
CPT/HCPCS: 77067

== ENCOUNTER → 2020-06-16 10:09 | Outpatient (CLI) | payer MEDICARE, OTHER, SELFPAY ==
[2018-02-10 09:35] VITALS: BMI 30.9
[2020-06-16 12:49] LABS: ALB/GLOB Ratio 1.1 RATIO (0.9-2.4); AST(SGOT) 17 U/L (15-37); Alanine Aminotransfer ALT/SGPT 27 U/L (13-56); Albumin, Serum 4.1 g/dL (3.2-5.0); Alkaline Phosphatase 33 U/L (45-117); Anion Gap 4 (5-15); BUN 13 mg/dL (7-18); BUN/Creat Ratio 14.7 RATIO (10-20); Calcium,Total 8.8 mg/dL (8.5-10.1); Chloride 105 mmol/L (98-107); Creatinine, Serum 0.88 mg/dL (0.55-1.02); EST Glomerular Filtration Rate 68 mL/min (>60); Est Glom Filt Rate - Afr Amer 82 mL/min (>60); Globulin 3.6 g/dL (2.2-4.2); Glucose 90 mg/dL (74-106); Potassium 3.8 mmol/L (3.5-5.1); Protein, Total 7.7 g/dL (6.4-8.2); Sodium Level 137 mmol/L (136-145)
[2020-06-16 13:29] LABS: Microalbumin,Random Urine 12.7 mg/L (NO RANGE EST.); Microalbumin:Creatinine Ratio 27.7 mg/g CRE (<30 mg/g CRE)
== END ==
PROVIDERS: PCP Family Medicine; Visit Provider Family Medicine
DX: I10 Essential (primary) hypertension (principal)
CPT/HCPCS: 36415; 80053; 82043; 82570

== ENCOUNTER → 2021-03-09 10:33 | Outpatient (CLI) | payer MEDICARE, OTHER, SELFPAY ==
[2018-02-10 09:35] VITALS: BMI 30.9
[2021-03-09 12:41] LABS: Microalbumin,Random Urine 25.5 mg/L (NO RANGE EST.)
[2021-03-09 13:11] LABS: ALB/GLOB Ratio 1.2 RATIO (0.9-2.4); AST(SGOT) 22 U/L (15-37); Alanine Aminotransfer ALT/SGPT 32 U/L (13-56); Albumin, Serum 4.6 g/dL (3.2-5.0); Alkaline Phosphatase 36 U/L (45-117); Anion Gap 8 (5-15); BUN 16 mg/dL (7-18); BUN/Creat Ratio 14.8 RATIO (10-20); Calcium,Total 9.4 mg/dL (8.5-10.1); Chloride 101 mmol/L (98-107); Cholesterol 149 mg/dL (200); Creatinine, Serum 1.08 mg/dL (0.55-1.02); EST Glomerular Filtration Rate 54 mL/min (>60); Est Glom Filt Rate - Afr Amer 65 mL/min (>60); Globulin 3.8 g/dL (2.2-4.2); Glucose 91 mg/dL (74-106); High Density Lipoprotein 45 mg/dL; Potassium 3.7 mmol/L (3.5-5.1); Protein, Total 8.4 g/dL (6.4-8.2); Sodium Level 139 mmol/L (136-145)
== END ==
PROVIDERS: PCP Family Medicine; Visit Provider Family Medicine
DX: I10 Essential (primary) hypertension (principal)
CPT/HCPCS: 36415; 80053; 82043; 82465; 83718

== ENCOUNTER → 2022-01-07 | Outpatient (CLI) | payer MEDICARE, OTHER, SELFPAY ==
[2022-01-07 12:32] LABS: Creatinine, Urine (random) < 13.00 mg/dL (NO RANGE EST.); Microalbumin,Random Urine 9.7 mg/L (NO RANGE EST.)
[2022-01-07 12:36] LABS: Hemoglobin A1c 5.5 % (3.8-5.6)
[2022-01-07 13:00] LABS: ALB/GLOB Ratio 1.4 RATIO (0.9-2.4); AST(SGOT) 25 U/L (15-37); Alanine Aminotransfer ALT/SGPT 32 U/L (13-56); Albumin, Serum 4.8 g/dL (3.2-5.0); Alkaline Phosphatase 33 U/L (45-117); Anion Gap 8 (5-15); BUN 13 mg/dL (7-18); BUN/Creat Ratio 13.7 RATIO (10-20); Calcium,Total 9.6 mg/dL (8.5-10.1); Chloride 102 mmol/L (98-107); Cholesterol 148 mg/dL (200); Creatinine, Serum 0.95 mg/dL (0.55-1.02); EST Glomerular Filtration Rate 62 mL/min (>60); Est Glom Filt Rate - Afr Amer 75 mL/min (>60); Globulin 3.4 g/dL (2.2-4.2); Glucose 92 mg/dL (74-106); High Density Lipoprotein 46 mg/dL; Potassium 3.5 mmol/L (3.5-5.1); Protein, Total 8.2 g/dL (6.4-8.2); Sodium Level 138 mmol/L (136-145)
== END | disposition home or self-care (01) ==
LOC: MFPLAB 11:23
PROVIDERS: PCP Family Medicine; Referring Provider Family Medicine; Visit Provider Family Medicine
DX: E78.00 Pure hypercholesterolemia, unspecified (principal); E66.9 Obesity, unspecified; I10 Essential (primary) hypertension; Z68.32 Body mass index [BMI] 32.0-32.9, adult
CPT/HCPCS: 36415; 80053; 82043; 82465; 82570; 83036; 83718

== ENCOUNTER → 2022-01-19 | Outpatient (CLI) | payer MEDICARE, OTHER, SELFPAY | END | disposition home or self-care (01) | LOC: MFPLAB 11:20 → LABSPEC 11:20 | PROVIDERS: PCP Family Medicine; Referring Provider Family Medicine; Visit Provider Family Medicine | DX: R19.7 Diarrhea, unspecified (principal) | CPT/HCPCS: 87506 ==

== ENCOUNTER → 2022-07-12 | Outpatient (CLI) | payer MEDICARE, OTHER, SELFPAY ==
[2022-07-12 12:29] LABS: Absolute Lymphocyte Count 1.91 X10^3/uL (0.83-4.51); Basophil# 0.03 X10^3/uL; Basophil% 0.4 % (0-1); Eosinophil# 0.15 X10^3/uL; Eosinophils% 1.9 % (0-5); Hemoglobin 14.7 g/dL (12.0-15.0); Lymphocyte # 1.91 X10^3/ul (0.83-4.51); Lymphocyte % 24.6 % (19-41); Mean Corp Hgb Conc 34.2 g/dL (32-36); Mean Corpuscular Hgb 32.7 pg (27.0-32.0); Mean Corpuscular Volume 95.6 fL (81-99); Mean Platelet Vol. 11.3 fl (6.2-12.0); Monocyte# 0.62 X10^3/uL; NRBC Flagged by Analyzer 0 % (0-5); Neutrophil # 5.02 X10^3/uL (2.7-7.7); Neutrophil % 64.7 % (47-70); Platelet Count 268 K/mm3 (150-450); RBC Distribution Width CV 13.4 % (11.6-14.6); RBC Distribution Width SD 47.6 fl (35.1-43.9); White Blood Count 7.8 K/mm3 (4.4-11.0)
[2022-07-12 13:48] LABS: ALB/GLOB Ratio 1.1 RATIO (0.9-2.4); AST(SGOT) 20 U/L (15-37); Alanine Aminotransfer ALT/SGPT 27 U/L (13-56); Albumin, Serum 4.2 g/dL (3.2-5.0); Alkaline Phosphatase 37 U/L (45-117); Anion Gap 10 (5-15); BUN 12 mg/dL (7-18); BUN/Creat Ratio 12.3 RATIO (10-20); Calcium,Total 9.5 mg/dL (8.5-10.1); Chloride 100 mmol/L (98-107); Creatinine, Serum 0.98 mg/dL (0.55-1.02); EST Glomerular Filtration Rate 60 mL/min (>60); Est Glom Filt Rate - Afr Amer 73 mL/min (>60); Globulin 3.9 g/dL (2.2-4.2); Glucose 94 mg/dL (74-106); Potassium 3.2 mmol/L (3.5-5.1); Protein, Total 8.1 g/dL (6.4-8.2); Sodium Level 137 mmol/L (136-145)
[2022-07-13 16:27] LABS: ANTINUCLEAR ANTIBODIES DIRECT Negative (Negative)
== END | disposition home or self-care (01) ==
LOC: MTLAB 09:51
PROVIDERS: PCP Family Medicine; Referring Provider Family Medicine; Visit Provider Family Medicine
DX: M13.0 Polyarthritis, unspecified (principal); I10 Essential (primary) hypertension; E66.9 Obesity, unspecified; E78.00 Pure hypercholesterolemia, unspecified
CPT/HCPCS: 36415; 80053; 85025; 86038; 86140

== ENCOUNTER → 2022-08-02 | Outpatient (CLI) | payer MEDICARE, OTHER, SELFPAY ==
[2022-08-02 12:22] LABS: Anion Gap 5 (5-15); BUN 13 mg/dL (7-18); BUN/Creat Ratio 14.3 RATIO (10-20); CRP 9.47 mg/L (0.0-3.0); Chloride 101 mmol/L (98-107); Creatinine, Serum 0.91 mg/dL (0.55-1.02); EST Glomerular Filtration Rate 65 mL/min (>60); Est Glom Filt Rate - Afr Amer 79 mL/min (>60); Glucose 87 mg/dL (74-106); Magnesium 2.4 mg/dL (1.6-2.6); Potassium 3.5 mmol/L (3.5-5.1); Sodium Level 138 mmol/L (136-145)
== END | disposition home or self-care (01) ==
LOC: MFPLAB 09:30
PROVIDERS: PCP Family Medicine; Visit Provider Family Medicine
DX: E87.6 Hypokalemia (principal)
CPT/HCPCS: 36415; 80048; 83735; 86140

== ENCOUNTER → 2022-12-28 | Outpatient (CLI) | payer MEDICARE, OTHER, SELFPAY ==
--- NOTE | 2022-12-28 14:22 | RAD_ITS ---
STUDY: X-RAY - RIGHT HAND REASON FOR EXAM: Female, 67 years old. Pain and stiffness TECHNIQUE: 3 view(s) of the hand. COMPARISON: None. Bones are diffusely demineralized. No demonstrated fracture or erosive osseous lesion.. Degenerative arthrosis noted at all visualized joint spaces, most notably at the radial scaphoid joint space, and at the base of the thumb. No foreign body or suspicious soft tissue swelling. Subchondral changes noted in the distal humerus and lunate. RAD/Hand Min 3 Views IMPRESSION: Demineralization with polyarticular arthrosis, no demonstrated fracture or erosive osseous lesion Subchondral changes in the distal humerus and lunate Electronically Signed: Tashi Garland MD at 14:56 EDT ,
--- NOTE | 2022-12-28 14:22 | RAD_ITS ---
STUDY: X-RAY - PELVIS REASON FOR EXAM: Female, 67 years old. PAIN TECHNIQUE: One view of the pelvis was obtained. COMPARISON: None. FINDINGS: There is a non-specific bowel gas pattern. Normal visualized soft tissue structures. There is narrowing with cortical sclerosis and osteophyte formation of the sacroiliac joint consistent with degenerative osteoarthritic changes. Normal visualized bilateral superior and inferior pubic rami. Normal pubic symphysis. Normal ischial tuberosities. Normal visualized right femoral head. Normal right acetabulum. There is moderate articular joint space narrowing of the right hip. Normal visualized left femoral head. Normal left acetabulum. There is moderate articular joint space narrowing of the left hip. RAD/Pelvis 1 or 2 Views IMPRESSION: Age consistent hip and SI joint arthrosis, no demonstrated fracture or suspicious osseous lesion Electronically Signed: Tashi Garland MD at 14:53 EDT ,
--- NOTE | 2022-12-28 14:22 | RAD_ITS ---
STUDY: X-RAY - LEFT HAND REASON FOR EXAM: Female, 67 years old. PAIN TECHNIQUE: 3 view(s) of the hand. COMPARISON: None, but the right hand was also performed. FINDINGS: Bones are diffusely demineralized. No demonstrated fracture or suspicious erosive osseous lesion. Degenerative arthrosis at all visualized joint spaces, most oblique the base of the thumb where there is subluxation and subchondral changes in the trapezium and first metacarpal. No soft tissue swelling or foreign body RAD/Hand Min 3 Views IMPRESSION: Demineralization of the osseous structures with polyarticular arthrosis. No demonstrated fracture or suspicious erosive osseous lesion Subchondral changes noted in the trapezium and proximal first metacarpal Electronically Signed: Tashi Garland MD at 14:59 EDT ,
[2022-12-28 17:45] LABS: Absolute Lymphocyte Count 2.05 X10^3/uL (0.83-4.51); Absolute Neutrophil Count 5.2 X10^3/uL (2.0-7.7); Basophil# 0.04 X10^3/uL; Basophil% 0.5 % (0-1); Eosinophil# 0.04 X10^3/uL; Eosinophils% 0.5 % (0-5); Hematocrit 43.7 % (37-47); Hemoglobin 14.9 g/dL (12.0-15.0); Lymphocyte # 2.05 X10^3/ul (0.83-4.51); Lymphocyte % 26.3 % (19-41); Mean Corp Hgb Conc 34.1 g/dL (32-36); Mean Corpuscular Hgb 32.6 pg (27.0-32.0); Mean Corpuscular Volume 95.6 fL (81-99); Monocyte# 0.49 X10^3/uL; Monocyte% 6.3 % (0-10); NRBC Flagged by Analyzer 0 % (0-5); Neutrophil # 5.15 X10^3/uL (2.7-7.7); Neutrophil % 66.1 % (47-70); Platelet Count 288 K/mm3 (150-450); RBC Distribution Width CV 13.4 % (11.6-14.6); RBC Distribution Width SD 47.6 fl (35.1-43.9); Red Blood Count 4.57 M/mm3 (4.2-5.4); White Blood Count 7.8 K/mm3 (4.4-11.0)
[2022-12-28 18:38] LABS: Erythrocyte Sedimentation Rate 22 mm/hr (0-30)
[2022-12-28 18:48] LABS: ALB/GLOB Ratio 1.3 RATIO (0.9-2.4); AST(SGOT) 26 U/L (15-37); Alanine Aminotransfer ALT/SGPT 34 U/L (13-56); Albumin, Serum 4.7 g/dL (3.2-5.0); Alkaline Phosphatase 34 U/L (45-117); Anion Gap 8 (5-15); BUN 15 mg/dL (7-18); BUN/Creat Ratio 16.5 RATIO (10-20); CRP 9.15 mg/L (0.0-3.0); Calcium,Total 9.7 mg/dL (8.5-10.1); Chloride 101 mmol/L (98-107); Creatinine, Serum 0.91 mg/dL (0.55-1.02); EST Glomerular Filtration Rate 65 mL/min (>60); Est Glom Filt Rate - Afr Amer 79 mL/min (>60); Globulin 3.6 g/dL (2.2-4.2); Glucose 104 mg/dL (74-106); Potassium 3.3 mmol/L (3.5-5.1); Protein, Total 8.3 g/dL (6.4-8.2); Rheumatoid Factor < 10.0 IU/mL (<15); Sodium Level 135 mmol/L (136-145)
[2022-12-28 19:37] LABS: Hepatitis B Surface Antibody Non-Reactive; Hepatitis B Surface Antigen Non-Reactive (Nonreactive); Hepatitis C Antibody Non-Reactive (Nonreactive)
[2022-12-30 18:54] LABS: ANTINUCLEAR ANTIBODIES DIRECT Negative (Negative); CCP IgG Antibodies 16 units (0-19)
== END | disposition home or self-care (01) ==
LOC: MTLAB 14:20
PROVIDERS: PCP Family Medicine; Referring Provider Internal Medicine Rheumatology; Visit Provider Internal Medicine Rheumatology
DX: M06.4 Inflammatory polyarthropathy (principal); M48.061 Spinal stenosis, lumbar region without neurogenic claudication; I10 Essential (primary) hypertension; E78.5 Hyperlipidemia, unspecified; J45.909 Unspecified asthma, uncomplicated; I89.0 Lymphedema, not elsewhere classified
CPT/HCPCS: 36415; 72170; 73130; 80053; 85025; 85652; 86038; 86140; 86200; 86431; 86706; 86803; 87340

== ENCOUNTER → 2023-03-07 | Outpatient (CLI) | payer MEDICARE, OTHER, SELFPAY ==
[2023-03-07 10:29] LABS: ALB/GLOB Ratio 1.1 RATIO (0.9-2.4); AST(SGOT) 26 U/L (15-37); Alanine Aminotransfer ALT/SGPT 36 U/L (13-56); Albumin, Serum 4.2 g/dL (3.2-5.0); Alkaline Phosphatase 34 U/L (45-117); Anion Gap 7 (5-15); BUN 15 mg/dL (7-18); BUN/Creat Ratio 15.6 RATIO (10-20); Calcium,Total 9.7 mg/dL (8.5-10.1); Chloride 101 mmol/L (98-107); Creatinine, Serum 0.96 mg/dL (0.55-1.02); EST Glomerular Filtration Rate 61 mL/min (>60); Est Glom Filt Rate - Afr Amer 74 mL/min (>60); Globulin 3.7 g/dL (2.2-4.2); Glucose 101 mg/dL (74-106); Potassium 3.4 mmol/L (3.5-5.1); Protein, Total 7.9 g/dL (6.4-8.2); Sodium Level 137 mmol/L (136-145)
[2023-03-07 10:40] LABS: Absolute Lymphocyte Count 1.53 X10^3/uL (0.83-4.51); Absolute Neutrophil Count 4.1 X10^3/uL (2.0-7.7); Basophil# 0.03 X10^3/uL; Basophil% 0.5 % (0-1); Eosinophil# 0.09 X10^3/uL; Eosinophils% 1.4 % (0-5); Hematocrit 43.2 % (37-47); Hemoglobin 14.5 g/dL (12.0-15.0); Lymphocyte # 1.53 X10^3/ul (0.83-4.51); Lymphocyte % 24.4 % (19-41); Mean Corp Hgb Conc 33.6 g/dL (32-36); Mean Corpuscular Hgb 32.7 pg (27.0-32.0); Mean Corpuscular Volume 97.5 fL (81-99); Mean Platelet Vol. 10.8 fl (6.2-12.0); Monocyte# 0.52 X10^3/uL; Monocyte% 8.3 % (0-10); NRBC Flagged by Analyzer 0 % (0-5); Neutrophil # 4.08 X10^3/uL (2.7-7.7); Neutrophil % 64.9 % (47-70); Platelet Count 257 K/mm3 (150-450); RBC Distribution Width CV 14.2 % (11.6-14.6); RBC Distribution Width SD 50.6 fl (35.1-43.9); Red Blood Count 4.43 M/mm3 (4.2-5.4); White Blood Count 6.3 K/mm3 (4.4-11.0)
== END | disposition home or self-care (01) ==
LOC: MTLAB 08:42
PROVIDERS: PCP Internal Medicine; Referring Provider Internal Medicine Rheumatology; Visit Provider Internal Medicine Rheumatology
DX: M06.4 Inflammatory polyarthropathy (principal); Z79.899 Other long term (current) drug therapy
CPT/HCPCS: 36415; 80053; 85025

== ENCOUNTER → 2023-05-11 | Outpatient (CLI) | payer MEDICARE, OTHER, SELFPAY ==
[2023-05-11 15:13] LABS: Absolute Neutrophil Count 4.5 X10^3/uL (2.0-7.7); Basophil# 0.05 X10^3/uL; Basophil% 0.7 % (0-1); Eosinophil# 0.11 X10^3/uL; Eosinophils% 1.4 % (0-5); Hematocrit 41.3 % (37-47); Hemoglobin 14.2 g/dL (12.0-15.0); Lymphocyte % 31.5 % (19-41); Mean Corp Hgb Conc 34.4 g/dL (32-36); Mean Corpuscular Hgb 33.6 pg (27.0-32.0); Mean Corpuscular Volume 97.9 fL (81-99); Mean Platelet Vol. 10.2 fl (6.2-12.0); Monocyte# 0.58 X10^3/uL; Monocyte% 7.6 % (0-10); NRBC Flagged by Analyzer 0 % (0-5); Neutrophil # 4.47 X10^3/uL (2.7-7.7); Neutrophil % 58.5 % (47-70); Platelet Count 322 K/mm3 (150-450); RBC Distribution Width CV 14.5 % (11.6-14.6); RBC Distribution Width SD 51.5 fl (35.1-43.9); Red Blood Count 4.22 M/mm3 (4.2-5.4); White Blood Count 7.6 K/mm3 (4.4-11.0)
[2023-05-11 16:14] LABS: ALB/GLOB Ratio 1.2 RATIO (0.9-2.4); AST(SGOT) 24 U/L (15-37); Alanine Aminotransfer ALT/SGPT 37 U/L (13-56); Albumin, Serum 4.4 g/dL (3.2-5.0); Alkaline Phosphatase 35 U/L (45-117); Anion Gap 10 (5-15); BUN 15 mg/dL (7-18); BUN/Creat Ratio 17.4 RATIO (10-20); Calcium,Total 9.9 mg/dL (8.5-10.1); Chloride 102 mmol/L (98-107); Creatinine, Serum 0.86 mg/dL (0.55-1.02); EST Glomerular Filtration Rate 69 mL/min (>60); Est Glom Filt Rate - Afr Amer 84 mL/min (>60); Globulin 3.8 g/dL (2.2-4.2); Glucose 97 mg/dL (74-106); Potassium 3.5 mmol/L (3.5-5.1); Protein, Total 8.2 g/dL (6.4-8.2); Sodium Level 138 mmol/L (136-145)
== END | disposition home or self-care (01) ==
LOC: MTLAB 12:00
PROVIDERS: PCP Internal Medicine; Referring Provider Internal Medicine Rheumatology; Visit Provider Internal Medicine Rheumatology
DX: M06.4 Inflammatory polyarthropathy (principal); Z79.899 Other long term (current) drug therapy
CPT/HCPCS: 36415; 80053; 85025

== ENCOUNTER → 2023-08-02 | Outpatient (CLI) | payer MEDICARE, OTHER, SELFPAY ==
[2023-08-02 12:44] LABS: Absolute Lymphocyte Count 1.37 X10^3/uL (0.83-4.51); Absolute Neutrophil Count 4.3 X10^3/uL (2.0-7.7); Basophil# 0.03 X10^3/uL; Basophil% 0.5 % (0-1); Eosinophil# 0.06 X10^3/uL; Hematocrit 41.7 % (37-47); Hemoglobin 14.1 g/dL (12.0-15.0); Lymphocyte # 1.37 X10^3/ul (0.83-4.51); Lymphocyte % 22.5 % (19-41); Mean Corp Hgb Conc 33.8 g/dL (32-36); Mean Corpuscular Hgb 33.6 pg (27.0-32.0); Mean Corpuscular Volume 99.3 fL (81-99); Mean Platelet Vol. 10.1 fl (6.2-12.0); Monocyte# 0.37 X10^3/uL; Monocyte% 6.1 % (0-10); NRBC Flagged by Analyzer 0 % (0-5); Neutrophil # 4.25 X10^3/uL (2.7-7.7); Neutrophil % 69.7 % (47-70); Platelet Count 277 K/mm3 (150-450); RBC Distribution Width CV 13.9 % (11.6-14.6); RBC Distribution Width SD 50.6 fl (35.1-43.9); White Blood Count 6.1 K/mm3 (4.4-11.0)
[2023-08-02 13:13] LABS: ALB/GLOB Ratio 1.1 RATIO (0.9-2.4); AST(SGOT) 32 U/L (15-37); Alanine Aminotransfer ALT/SGPT 44 U/L (13-56); Albumin, Serum 4.3 g/dL (3.2-5.0); Alkaline Phosphatase 35 U/L (45-117); Anion Gap 8 (5-15); BUN 16 mg/dL (7-18); BUN/Creat Ratio 16.9 RATIO (10-20); Calcium,Total 9.2 mg/dL (8.5-10.1); Chloride 100 mmol/L (98-107); Creatinine, Serum 0.95 mg/dL (0.55-1.02); EST Glomerular Filtration Rate 62 mL/min (>60); Est Glom Filt Rate - Afr Amer 75 mL/min (>60); Globulin 3.8 g/dL (2.2-4.2); Glucose 95 mg/dL (74-106); Potassium 3.6 mmol/L (3.5-5.1); Protein, Total 8.1 g/dL (6.4-8.2); Sodium Level 136 mmol/L (136-145)
== END | disposition home or self-care (01) ==
LOC: MTLAB 09:39
PROVIDERS: PCP Internal Medicine; Referring Provider Internal Medicine Rheumatology; Visit Provider Internal Medicine Rheumatology
DX: M06.4 Inflammatory polyarthropathy (principal); Z79.899 Other long term (current) drug therapy
CPT/HCPCS: 36415; 80053; 85025

== ENCOUNTER → 2023-11-07 | Outpatient (CLI) | payer MEDICARE, OTHER, SELFPAY ==
[2023-11-07 12:30] LABS: ALB/GLOB Ratio 1.2 RATIO (0.9-2.4); AST(SGOT) 34 U/L (15-37); Alanine Aminotransfer ALT/SGPT 48 U/L (13-56); Albumin, Serum 4.3 g/dL (3.2-5.0); Alkaline Phosphatase 30 U/L (45-117); Anion Gap 7 (5-15); BUN 17 mg/dL (7-18); BUN/Creat Ratio 17.3 RATIO (10-20); Calcium,Total 9.6 mg/dL (8.5-10.1); Chloride 103 mmol/L (98-107); Creatinine, Serum 0.98 mg/dL (0.55-1.02); EST Glomerular Filtration Rate 59 mL/min (>60); Est Glom Filt Rate - Afr Amer 72 mL/min (>60); Globulin 3.6 g/dL (2.2-4.2); Glucose 100 mg/dL (74-106); Potassium 3.7 mmol/L (3.5-5.1); Protein, Total 7.9 g/dL (6.4-8.2); Sodium Level 138 mmol/L (136-145)
[2023-11-07 12:34] LABS: Absolute Lymphocyte Count 1.55 X10^3/uL (0.83-4.51); Absolute Neutrophil Count 4.9 X10^3/uL (2.0-7.7); Basophil# 0.05 X10^3/uL; Basophil% 0.7 % (0-1); Eosinophil# 0.09 X10^3/uL; Eosinophils% 1.2 % (0-5); Hematocrit 42.6 % (37-47); Hemoglobin 13.9 g/dL (12.0-15.0); Lymphocyte # 1.55 X10^3/ul (0.83-4.51); Lymphocyte % 21.4 % (19-41); Mean Corp Hgb Conc 32.6 g/dL (32-36); Mean Corpuscular Hgb 32.5 pg (27.0-32.0); Mean Corpuscular Volume 99.5 fL (81-99); Mean Platelet Vol. 10.3 fl (6.2-12.0); Monocyte# 0.63 X10^3/uL; Monocyte% 8.7 % (0-10); NRBC Flagged by Analyzer 0 % (0-5); Neutrophil # 4.88 X10^3/uL (2.7-7.7); Neutrophil % 67.6 % (47-70); Platelet Count 277 K/mm3 (150-450); RBC Distribution Width CV 15.2 % (11.6-14.6); RBC Distribution Width SD 54.6 fl (35.1-43.9); Red Blood Count 4.28 M/mm3 (4.2-5.4); White Blood Count 7.2 K/mm3 (4.4-11.0)
== END | disposition home or self-care (01) ==
PROVIDERS: PCP Internal Medicine; Referring Provider Internal Medicine Rheumatology; Visit Provider Internal Medicine Rheumatology
DX: M06.4 Inflammatory polyarthropathy (principal); Z79.899 Other long term (current) drug therapy
CPT/HCPCS: 36415; 80053; 85025

== ENCOUNTER → 2024-04-10 | Outpatient (CLI) | payer MEDICARE, OTHER, SELFPAY ==
[2024-04-10 15:08] LABS: Absolute Neutrophil Count 3.8 X10^3/uL (2.0-7.7); Basophil# 0.04 X10^3/uL; Basophil% 0.6 % (0-1); Eosinophil# 0.07 X10^3/uL; Eosinophils% 1.1 % (0-5); Hematocrit 41.8 % (37-47); Hemoglobin 13.6 g/dL (12.0-15.0); Lymphocyte % 33.8 % (19-41); Mean Corp Hgb Conc 32.5 g/dL (32-36); Mean Corpuscular Hgb 32.8 pg (27.0-32.0); Mean Corpuscular Volume 100.7 fL (81-99); Mean Platelet Vol. 10.5 fl (6.2-12.0); Monocyte# 0.36 X10^3/uL; Monocyte% 5.5 % (0-10); NRBC Flagged by Analyzer 0 % (0-5); Neutrophil # 3.82 X10^3/uL (2.7-7.7); Neutrophil % 58.7 % (47-70); Platelet Count 298 K/mm3 (150-450); RBC Distribution Width CV 15.4 % (11.6-14.6); RBC Distribution Width SD 57.1 fl (35.1-43.9); Red Blood Count 4.15 M/mm3 (4.2-5.4); White Blood Count 6.5 K/mm3 (4.4-11.0)
[2024-04-10 15:43] LABS: ALB/GLOB Ratio 1.2 RATIO (0.9-2.4); AST(SGOT) 62 U/L (15-37); Alanine Aminotransfer ALT/SGPT 110 U/L (13-56); Albumin, Serum 4.4 g/dL (3.2-5.0); Alkaline Phosphatase 32 U/L (45-117); Anion Gap 7 (5-15); BUN 15 mg/dL (7-18); BUN/Creat Ratio 17.8 RATIO (10-20); Calcium,Total 9.6 mg/dL (8.5-10.1); Chloride 100 mmol/L (98-107); Creatinine, Serum 0.84 mg/dL (0.55-1.02); EST Glomerular Filtration Rate 71 mL/min (>60); Est Glom Filt Rate - Afr Amer 85 mL/min (>60); Globulin 3.7 g/dL (2.2-4.2); Glucose 91 mg/dL (74-106); Potassium 3.3 mmol/L (3.5-5.1); Protein, Total 8.1 g/dL (6.4-8.2); Sodium Level 136 mmol/L (136-145)
== END | disposition home or self-care (01) ==
LOC: MTLAB 13:24
PROVIDERS: PCP Internal Medicine; Referring Provider Internal Medicine Rheumatology; Visit Provider Internal Medicine Rheumatology
DX: M06.4 Inflammatory polyarthropathy (principal); Z79.899 Other long term (current) drug therapy
CPT/HCPCS: 36415; 80053; 85025